=== PATIENT | male | born 1975 | race African-American/Black ===

== ENCOUNTER 2016-08-24 18:52 | Emergency (ER) | payer BC ==
[2016-08-24 20:10] VITALS: RESP 20; TEMP 98.1
--- NOTE | 2016-08-24 20:59 | ED ---
General Adult HPI - General Chief complaint: Extremity Injury, Lower Stated complaint: swelling left calf Time Seen by Provider: 08/24/16 20:15 Source: patient, RN notes reviewed Mode of arrival: ambulatory Limitations: no limitations - History of Present Illness Initial comments: This is a 41-year-old male who presents with a left lower extremity pain 2 weeks. Patient states he has noticed pain to the posterior left calf approximately 2 weeks ago. Patient states this started while he was at work sitting at his desk. Patient states he's been trying to stretch the left lower extremity and stay walking on it to improve the pain but nothing has worked. Patient states the pain has gotten worse and yesterday he noticed swelling to the left lower extremity. Patient states today he noticed some tingling to the top of the left foot but denies any numbness or weakness. Patient is able to ambulate. Patient has no history of DVT. Patient is not on any medication. Patient states she did have orthopedic surgery in May 2016.patient is also complaining of right shoulder pain 3-4 months. Patient states the pain is worse with lifting his arms above his head and with lifting objects. Patient states this was a gradual onset of pain to the right shoulder. Patient denies any injury to the left lower extremity or the right shoulder. Patient denies any recent fever, chills, shortness breath, chest pain, abdominal pain, nausea/ vomiting/diarrhea, back pain, hematuria, headache, or visual changes, or any other complaints. - Related Data Home Medications Medication Instructions Recorded Confirmed No Known Home Medications [No 01/21/14 08/24/16 Known Home Medications] Allergies Allergy/AdvReac Type Severity Reaction Status Date / Time No Known Allergies Allergy Verified 08/24/16 20:10 Review of Systems ROS Statement: Those systems with pertinent positive or pertinent negative responses have been documented in the HPI. ROS Other: All systems not noted in ROS Statement are negative. Past Medical History Past Medical History: No Reported History History of Any Multi-Drug Resistant Organisms: None Reported Past Surgical History: Orthopedic Surgery Additional Past Surgical History / Comment(s): left arm Past Psychological History: No Psychological Hx Reported Smoking Status: Never smoker Past Alcohol Use History: Occasional Past Drug Use History: None Reported General Exam - General Exam Comments Initial Comments: General: The patient is awake and alert, in no distress, and does not appear acutely ill. Neck: The neck is supple, there is no tenderness or JVD. Cardiovascular: There is a regular rate and rhythm. No murmur, rub or gallop is appreciated. Respiratory: Lungs are clear to auscultation, respirations are non-labored, breath sounds are equal. No wheezes, stridor, rales, or rhonchi. Musculoskeletal: There is tenderness to palpation of the left calf. There is swelling noted to the left calf compared to the right calf. There is no erythema or warmth to bilateral lower extremities. There is tenderness to the anterior and lateral aspects of the right shoulder. There is pain with flexion and abduction of the right upper extremity, but the patient has full range of motion to the right upper extremity. Pain is exacerbated with opposed external rotation of the right forearm and with empty can test. Full range of motion, strength 5/5 and Sensation intact. Posterior tibial and dorsalis pedis pulses are equal and present bilaterally via Doptone. Radial pulses are 2+ bilaterally. 2+ pitting edema to bilateral lower extremities but patient states this is chronic. Capillary refill is less than 2 seconds bilaterally. Patient is able to ambulate. Neurological: A&O x 3. CN II-XII intact, There are no obvious motor or sensory deficits. Coordination appears grossly intact. Speech is normal. Skin: Skin is warm and dry and no rashes or lesions are noted. Psychiatric: Normal mood and affect. Limitations: no limitations Course Vital Signs 08/24/16 08/24/16 20:08 22:25 Temperature 98.1 F Pulse Rate 81 82 Respiratory 20 20 Rate Blood Pressure 174/90 153/98 O2 Sat by Pulse 98 96 Oximetry Medical Decision Making - Medical Decision Making This is a 41-year-old male presents with left lower extremity swelling and right shoulder pain. On physical exam there is there is tenderness to palpation of the left calf. There is swelling noted to the left calf compared to the right calf. There is no erythema or warmth to bilateral lower extremities. There is tenderness to the anterior and lateral aspects of the right shoulder. There is pain with flexion and abduction of the right upper extremity, the patient has full range of motion to the right upper extremity. Pain is exacerbated with opposed external rotation of the right forearm and with empty can test. Full range of motion, strength 5/5 and Sensation intact. Posterior tibial and dorsalis pedis pulses are equal and present bilaterally via Doptone. Radial pulses are 2+ bilaterally. 2+ pitting edema to bilateral lower extremities but patient states this is chronic. Capillary refill is less than 2 seconds bilaterally. Patient is able to ambulate. Patient's elevated systolic blood pressure noted. Patient states he has been on blood pressure medications in the past, but stopped these medications due to dizziness. Discussed with patient to follow-up with primary care physician for this. Patient's reported tingling to the right foot has improved during his stay in the [facility]. A Doppler ultrasound of the left lower extremity was done and reviewed showing: No evidence of acute deep venous thrombosis in the visualized left lower extremity deep veins. Report reviewed by Dr. Moore. An x-ray of the right upper extremity was done and reviewed showing: There is no acute fracture or dislocation. Mild degenerative arthritic changes in the right acromioclavicular joint. Report read by Dr. Moore. Discussed the patient will receive a sling for the right shoulder, but patient refused sling at this time. Discussed rest, ice, elevate and use a Christopher wrap to left lower extremity for compression. Discussed that this could be a rotator cuff injury to the right shoulder and possible muscle strain to the left lower extremity. Discussed follow-up with orthopedics further evaluation. Discussed [id number] Tylenol and or Motrin as needed for any pain. Discussed that patient should follow up with PCP in one to 2 days or return to the [facility] for any worsening symptoms or for any further concerns. Patient and were receptive to this plan and patient will be discharged home. I discussed his case with attending physician Dr. Juarez who agrees the plan as stated above. Disposition Clinical Impression: Right shoulder pain, Left leg pain Disposition: HOME SELF-CARE Condition: Good Instructions: Shoulder Pain (ED) Additional Instructions: Please rest, ice, elevate and use Christopher bandage for compression to the lower extremity. Please use [id number] Tylenol and or Motrin as seen for any pain. Please follow-up with orthopedics for right shoulder pain. Please follow -up with PCP in one to 2 days or return to the [facility] for any worsening symptoms or for any further concerns. Referrals: Darrian Ansari III, MD [Primary Care Provider] - 1-2 days Axel Luque DO [Doctor of Osteopathic Medicine] - 1-2 days Time of Disposition: 22:21
--- NOTE | 2016-08-24 22:09 | US ---
EXAMINATION TYPE: US venous doppler duplex LE LT DATE OF EXAM: 08/24/2016 9:35 PM COMPARISON: NONE CLINICAL HISTORY: left calf pain x 2 weeks and swelling x 1 day. No hx of blood clots. No hx of inj ury or on blood thinners. Pt had maniscus repair in May.. SIDE PERFORMED: Left VESSELS IMAGED: External Iliac Vein (EIV) Common Femoral Vein Deep Femoral Vein Greater Saphenous Vein * Femoral Vein Popliteal Vein Small Saphenous Vein * Proximal Calf Veins (* superficial vessels) Essentially normal phasic flow augmentation and compression is demonstrated in the visualized left lo wer extremity deep veins including left common femoral, superficial femoral and popliteal veins. IMPRESSION: No evidence of acute deep venous thrombosis in the visualized left lower extremity deep veins.
--- NOTE | 2016-08-24 22:13 | XR ---
EXAMINATION TYPE: XR shoulder complete RT DATE OF EXAM: 08/24/2016 9:45 PM CLINICAL HISTORY: pain pain for 6 months. TECHNIQUE: Three views of the right shoulder are obtained. COMPARISON: None FINDINGS: There is no acute fracture/dislocation evident. Mild degenerative osteoarthritic changes a re present in the right acromioclavicular joint... The visualized ribs are intact and unremarkable. IMPRESSION: 1. There is no acute fracture or dislocation. Mild degenerative arthritic changes in the right acromi oclavicular joint. ICD 10 NO FRACTURE, INITIAL EVALUATION
[2016-08-24 22:27] VITALS: BP 153/98; PULSE 82
== END 2016-08-24 22:27 | disposition home or self-care (01) ==
LOC: EC 18:52
DX: M79.605 Pain in left leg (principal); M25.511 Pain in right shoulder; R22.42 Localized swelling, mass and lump, left lower limb; R20.2 Paresthesia of skin; Z98.890 Other specified postprocedural states
CPT/HCPCS: 99284

== ENCOUNTER 2016-10-25 20:34 | Emergency (ER) | payer BC ==
[2016-10-25 20:39] VITALS: BP 165/84; PULSE 75; RESP 18; TEMP 97.9
--- NOTE | 2016-10-25 21:37 | ED ---
General Adult HPI - General Chief complaint: Skin/Abscess/Foreign Body Stated complaint: Finger Pain Time Seen by Provider: 10/25/16 21:13 Source: patient, RN notes reviewed Mode of arrival: ambulatory Limitations: no limitations - History of Present Illness Initial comments: This is a 40-year-old male who presents with pain and swelling to the right index finger around the nailbed. Patient states he bit a hangnail 2 weeks ago and is now noticed pain and swelling is increasing. Patient denies any numbness /tingling or weakness. Patient denies any drainage from the area. Patient states on a course of Keflex for an abscess that he had drained last week but this has not helped the pain and swelling in his finger.Patient denies any recent fever, chills, shortness breath, chest pain, abdominal pain, nausea/ vomiting/diarrhea, back pain, hematuria, headache, or visual changes, or any other complaints. - Related Data Previous Rx's Medication Instructions Recorded Amoxic-Pot Clav 875-125Mg 1 tab PO Q12HR 5 Days 10/25/16 [Augmentin 875-125] Allergies Allergy/AdvReac Type Severity Reaction Status Date / Time No Known Allergies Allergy Verified 10/25/16 21:12 Review of Systems ROS Statement: Those systems with pertinent positive or pertinent negative responses have been documented in the HPI. ROS Other: All systems not noted in ROS Statement are negative. Past Medical History Past Medical History: No Reported History History of Any Multi-Drug Resistant Organisms: None Reported Past Surgical History: Orthopedic Surgery Additional Past Surgical History / Comment(s): left arm Past Psychological History: No Psychological Hx Reported Smoking Status: Never smoker Past Alcohol Use History: Occasional Past Drug Use History: None Reported General Exam - General Exam Comments Initial Comments: General: The patient is awake and alert, in no distress, and does not appear acutely ill. Neck: The neck is supple, there is no tenderness or JVD. Cardiovascular: There is a regular rate and rhythm. No murmur, rub or gallop is appreciated. Respiratory: Lungs are clear to auscultation, respirations are non-labored, breath sounds are equal. No wheezes, stridor, rales, or rhonchi. Musculoskeletal: Tenderness to palpation over the lateral aspect of the first digit's nail bed of the right hand. There is erythema but no sign of drainage. Full range of motion, strength 5/5 and Sensation intact. Radial pulses 2+ bilaterally. Capillary refill is normal at less than 2 seconds. Neurological: A&O x 3. CN II-XII intact, There are no obvious motor or sensory deficits. Coordination appears grossly intact. Speech is normal. Skin: There is erythema to the periungual of the index finger of the right hand. Skin is warm and dry and no rashes or lesions are noted. Psychiatric: Normal mood and affect. Limitations: no limitations Course Vital Signs 10/25/16 20:37 Temperature 97.9 F Pulse Rate 75 Respiratory 18 Rate Blood Pressure 165/84 O2 Sat by Pulse 97 Oximetry Procedures - Procedures Initial comment: Procedure: Incision and drainage The skin overlying the abscess was prepped with Betadine, and anesthetized with 1% lidocaine without epinephrine via digital block. A #18-gauge needle was then used to incise the abscess. Some serosanguineous material was then extracted from the lesion. Wound culture obtained. Gauze dressing placed on top, The patient tolerated the procedure well. Medical Decision Making - Medical Decision Making This is a 41-year-old male presents pain and swelling to the right index finger after biting hangnail. On physical exam patient is afebrile in the [facility]. Tenderness to palpation over the lateral aspect of the first digit's nail bed of the right hand. There is erythema but no sign of drainage. Full range of motion, strength 5/5 and Sensation intact. Radial pulses 2+ bilaterally. Capillary refill is normal at less than 2 seconds. Procedure: Incision and drainage The skin overlying the abscess was prepped with Betadine, and anesthetized with 1% lidocaine without epinephrine via digital block. A #18-gauge needle was then used to incise the abscess. Some serosanguineous material was then extracted from the lesion. Wound culture obtained. Gauze dressing placed on top, The patient tolerated the procedure well. I discussed warm compresses to the area and Tylenol/Motrin as needed for pain. I discussed the patient will be put on a course of antibiotics to prevent infection. Discussed return parameters. Discussed that patient should follow up with PCP in one to 2 days or return to the [facility] for any worsening symptoms or for any further concerns. Patient was receptive to this plan and patient will be discharged home. Disposition Clinical Impression: Paronychia Disposition: HOME SELF-CARE Condition: Good Instructions: Paronychia (ED) Additional Instructions: Please finish the course of antibiotics. Please use Tylenol or Motrin as needed for pain. Please use warm compresses to the area to allow for drainage.Please use medication as discussed. Please follow-up with family doctor in the next 2 days of symptoms have not improved. Please return to emergency room if the symptoms increase or worsen or for any other concerns. Prescriptions: Amoxic-Pot Clav 875-125Mg [Augmentin 875-125] 1 tab PO Q12HR 5 Days Referrals: Darrian Ansari III, MD [Primary Care Provider] - 1-2 days Time of Disposition: 22:35
== END 2016-10-25 22:40 | disposition home or self-care (01) ==
LOC: EC 20:34
DX: L03.011 Cellulitis of right finger (principal)
CPT/HCPCS: 10060; 87070; 87077; 87186; 87205; 99283

== ENCOUNTER → 2017-03-08 | Outpatient (CLI) | payer BC ==
--- NOTE | 2017-03-09 09:31 | CONS ---
REASON FOR CONSULTATION: Sleep apnea. This is a 42-year-old male patient, primary of Dr. Ansari, who has been diagnosed having obstructive sleep apnea approximately 6 years ago through a sleep center in [place]. He was treated with CPAP for a total of 2 years. He was told back then to have an apnea score of more than 100. His treatment was successful. After he moved, he lost his CPAP machine, he became progressively more symptomatic and he also gained around 30 pounds over the past 5 years. He is currently snoring, stops breathing. He wakes up choking, gasping for air. He has nocturia. He has a dry mouth and he has excessive tiredness and sleepiness during the day. He goes to bed around 10:30, wakes up 6 a.m. in the morning and despite that he quite lethargic and sleepy. He has positive family history for sleep apnea. Past medical history is obstructive sleep apnea and obesity. Past surgical history is repair of a meniscus of the left knee and shoulder surgery where a benign tumor was resected in 1986. SOCIAL HISTORY: The patient is a nonsmoker, no history of alcohol, no history of IV drugs. FAMILY HISTORY: Mother and brother have obstructive sleep apnea. Allergies are to POLLEN and GRASS and medications are none. REVIEW OF SYSTEMS: A 12-point review of system was done. Positive finding as mentioned above in the history of present illness. BP is 193/86, pulse 91, respirations 16, temperature 98.2, saturation 97% on room air. Weight is 366, height is 68 inches. Neck size 18, Columbus score is 12. GENERAL APPEARANCE: Calm, comfortable. HEENT: Short neck, crowing of posterior pharynx, Mallampati class 4. LUNGS: Clear to auscultation. Heart sounds irregular rhythm, normal S1, S2. ABDOMEN: Soft, nontender, no organomegaly. EXTREMITIES: No edema, no cyanosis or clubbing. IMPRESSION: 1. Symptomatic obstructive sleep apnea. The patient is coming in for re- evaluation and he is asking for being treated. 2. Body mass index of 55.6. 3. Chronic hypersomnia, Columbus score of 12. 4. Hypertension. PLAN: 1. Follow up with the primary care physician regarding blood pressure. 2. Set up this patient for ( ) study, the initial part will be diagnostic, second part will be therapeutic with diagnosis of the sleep apnea will be established and the patient will be treated accordingly. 3. Weight loss. 4. Avoid driving especially when feeling drowsy or sleepy. 5. Will continue to follow. MTDD
== END ==
LOC: SLEEP 17:01
PROVIDERS: ATTEND Internal Medicine Critical Care Medicine
DX: G47.33 Obstructive sleep apnea (adult) (pediatric) (principal); G47.10 Hypersomnia, unspecified; I10 Essential (primary) hypertension; Z68.43 Body mass index [BMI] 50.0-59.9, adult
CPT/HCPCS: 99211

== ENCOUNTER → 2017-07-27 | Outpatient (CLI) | payer BC ==
[2017-07-27 16:20] VITALS: RESP 16; TEMP 99.1; BMI 59.7
[2017-07-27 17:06] VITALS: BP 211/82; PULSE 118
[2017-07-27 18:11] LABS: MCH 27.3 pg (25.0-35.0); MCHC 33.4 g/dL (31.0-37.0); MCV 81.6 fL (80.0-100.0); Mean Platelet Volume 7.1; Platelet Count 246 k/uL (150-450); RBC 5.51 m/uL (4.30-5.90); RDW 14.8 % (11.5-15.5); WBC 7.8 k/uL (3.8-10.6)
[2017-07-27 18:29] LABS: ALT 42 U/L (21-72); AST 23 U/L (17-59); Albumin 3.8 g/dL (3.5-5.0); Alkaline Phosphatase 96 U/L (38-126); Anion Gap 8 mmol/L; Blood Urea Nitrogen 12 mg/dL (9-20); Calcium 9.3 mg/dL (8.4-10.2); Carbon Dioxide 30 mmol/L (22-30); Chloride 104 mmol/L (98-107); Cholesterol 147 mg/dL (<200); Glucose 93 mg/dL (74-99); HDL Cholesterol 39 mg/dL (40-60); LDL Cholesterol,Calculated 80 mg/dL (0-99); Potassium 4.3 mmol/L (3.5-5.1); Sodium 142 mmol/L (137-145); Total Bilirubin 0.2 mg/dL (0.2-1.3); Total Protein 7.2 g/dL (6.3-8.2); Triglycerides 142 mg/dL (<150)
[2017-07-28 01:03] LABS: Iron Saturation 15.02 (15.00-50.00)
[2017-07-28 01:09] LABS: Folate, Serum 5.8 ng/mL; Vitamin D 25 Hydroxy 8.4 ng/mL (30.0-100.0)
[2017-07-28 04:34] LABS: Hemoglobin A1C 5.9 % (4.0-6.0)
[2017-07-30 15:01] LABS: Anabasine Urine <2.0 ng/mL (<2.0)
--- NOTE | 2017-09-10 21:51 | P.HPBAR ---
Bariatric H&P - History & Physicial H&P Date: 07/27/17 History & Physicial: Visit/CC: initial visit Patient initial contact: Initial weight: 174.265 kg Initial weight in pounds: 384.00 Height: 5 ft 7.25 in Initial BMI: 59.7 Last weight: Current weight: 174.265 kg Current weight in pounds: 384.00 Current BMI: 59.7 [place] body weight (based on NIH guidelines): 67.812 kg Excess body weight loss: 0.0% The patient is a 42 year-old M who presents for Bariatric Assessment. DATE OF SERVICE: 07/27/2017 REASON FOR CONSULTATION: Initial bariatric evaluation. HISTORY OF PRESENT ILLNESS: Neil Soliz is a 42-year-old male who comes in with long-standing morbid obesity. He reports developing high blood pressure including obstructive sleep apnea as a result of his obesity. He is looking into the sleeve gastrectomy. No family history of stomach or esophageal cancer. No reports of food ALLERGIES. He denies lupus or multiple sclerosis in his family or himself. No reports of Crohn's disease or ulcer colitis. He has a strong family history of obesity. His mother and brother are diabetics. He reports severe chronic lower back pain including hip pain and bilateral knee pain. He has chronic swelling of the legs and ankles. No reports of fatty food intolerance or gallbladder disorder. Now he presents for his initial assessment. At height of 5 feet 7.25 inches, his ideal body weight is 158 pounds. He comes in with 383 pounds. His body mass index is 59.7. He is 225 pounds overweight. PAST MEDICAL HISTORY: 1. Morbid obesity. 2. Body mass index of 60 3. Osteoarthritis of the knees. 4. Osteoarthritis of the hips. 5. Osteoarthritis of the lower back. 6. Obstructive sleep apnea. 7. Hypertensive heart disease. PAST SURGICAL HISTORY: 1. Arthroscopy. HOME MEDICATIONS: 1. Hydrochlorothiazide. ALLERGIES: Denies. SOCIAL HISTORY: No active tobacco use. FAMILY HISTORY: No family history of ulcerative colitis disease or Crohn's disease. Family history of morbid obesity. No lupus in the family. No reports of stomach or esophageal cancer. Family history of diabetes type 2. REVIEW OF ORGAN SYSTEMS: CONSTITUTIONAL: At height of 5 feet 7.25 inches, his ideal body weight is 158 pounds. He comes in with 383 pounds. His body mass index is 59.7. He is 225 pounds overweight. HEENT: Denies any active troubles with vision or hearing. No troubles with swallowing. ENDOCRINE: No diabetes. No hypothyroidism. CARDIOVASCULAR: No reports of palpitations or heart attacks or chest pain. RESPIRATORY: Has daytime somnolence. No asthma. GI: Denies any bright red blood per rectum. No diarrhea or constipation. MUSCULOSKELETAL: Has lower back pain and joint pain. Has osteoarthritis of the knees. History of bilateral lower extremity edema. NEURO: No headaches. No seizure disorders. PSYCH: No depression or suicidal ideation. RHEUMATOLOGIC: No lupus. No rheumatoid arthritis. HEMATOLOGIC: Denies any abnormal bleeding or bruising. No personal history of DVTs. SKIN: No rash. No skin cancer. PHYSICAL EXAM: VITAL SIGNS: Height 5 foot 7.25 inches, weight 383 pounds. BMI 59.7 Vital Signs Temp 99.1 F 07/27/17 17:04 Pulse 118 H 07/27/17 17:04 Resp 16 07/27/17 17:04 BP 211/82 07/27/17 17:04 Pulse Ox GENERAL: Well-developed in no acute distress. HEENT: No scleral icterus. Extraocular movements grossly intact. Hears conversational speech. No nasal drainage. NECK: Supple without lymphadenopathy. CHEST: Nonlabored respirations with equal bilateral excursions. CARDIOVASCULAR: Regular rate and regular rhythm. Distal 2+ pulses. ABDOMEN: Obese, soft, nontender, nondistended. MUSCULOSKELETAL: No clubbing, cyanosis. Gross strength 5/5 distal lower extremities. 2+ pre-tibial pitting edema. NEURO: No focal or lateralizing signs. Cranial nerves 2 through 12 grossly within normal limits. PSYCH: Appropriate affect. Alert and oriented to person, place and time. SKIN: Good skin turgor. Well perfused. ASSESSMENT: 1. Morbid obesity due to excess calories. 2. Body mass index of 60 3. Osteoarthritis of the knees. 4. Osteoarthritis of the hips. 5. Osteoarthritis of the lower back. 6. Obstructive sleep apnea. 7. Hypertensive heart disease. 8. Bilateral lower extremity swelling. 9. Family history of morbid obesity. 10. Family history of diabetes type 2. 11. Supraventricular tachycardia. PLAN: 1. Surgical options including a band, gastric bypass, sleeve gastrectomy were described in detail. Alternatives such as gastric balloon including duodenal switch were described. 2. The [place] bariatric surgical collaborative data and outcomes calculator were described with surgical options. 3. Recommend a bariatric metabolic panel to evaluate for micro- including macronutrient deficiencies. 4. For history of daytime somnolence, recommend evaluation and treatment for sleep apnea. 5. Dietary surveillance and counseling was reviewed, I have asked increased protein intake to at least 80 grams daily. 6. Will need cardiac risk assessment. 7. Recommend medical risk assessment. 8. Psych assessment per insurance guidelines. 9. Follow up upon completion of upper endoscopy. 10. Recommend 12-lead EKG with family history of hypertensive heart disease and supraventricular tachycardia. 11. Recommend upper endoscopy. Thank you for this consultation. Past Medical History Past Medical History: No Reported History History of Any Multi-Drug Resistant Organisms: None Reported Past Surgical History: Orthopedic Surgery Additional Past Surgical History / Comment(s): left arm Past Psychological History: No Psychological Hx Reported Smoking Status: Never smoker Past Alcohol Use History: Occasional Past Drug Use History: None Reported Surgical - Exam Vital Signs Temp Resp 99.1 F 16 07/27/17 16:16 07/27/17 16:16 Results - Labs 07/27/17 17:40 07/27/17 17:40 Bariatric Checklist Checklist: Plan: Checklist: EGD: 1. Hiatal hernia: 2. H. Pylori: HgbA1c: Vitamin D: Smoking: Never smoker Primary care physician referral: Psychiatry clearance: Cardiology clearance: Sleep study: Diet journal: VTE risk score: VTE risk level: Rehab needs at discharge:
--- NOTE | 2017-09-10 22:08 | P.PN ---
Progress Note - Text Progress Note Date: 07/27/17 Laboratory Last Values WBC 7.8 k/uL (3.8-10.6) 07/27/17 17:40 RBC 5.51 m/uL (4.30-5.90) 07/27/17 17:40 Hgb 15.0 gm/dL (13.0-17.5) 07/27/17 17:40 Hct 45.0 % (39.0-53.0) 07/27/17 17:40 MCV 81.6 fL (80.0-100.0) 07/27/17 17:40 MCH 27.3 pg (25.0-35.0) 07/27/17 17:40 MCHC 33.4 g/dL (31.0-37.0) 07/27/17 17:40 RDW 14.8 % (11.5-15.5) 07/27/17 17:40 Plt Count 246 k/uL (150-450) 07/27/17 17:40 Sodium 142 mmol/L (137-145) 07/27/17 17:40 Potassium 4.3 mmol/L (3.5-5.1) 07/27/17 17:40 Chloride 104 mmol/L (98-107) 07/27/17 17:40 Carbon Dioxide 30 mmol/L (22-30) 07/27/17 17:40 Anion Gap 8 mmol/L 07/27/17 17:40 BUN 12 mg/dL (9-20) 07/27/17 17:40 Creatinine 1.13 mg/dL (0.66-1.25) 07/27/17 17:40 Est GFR (MDRD) Af Amer >60 (>60 ml/min/1.73 sqM) 07/27/17 17:40 Est GFR (MDRD) Non-Af >60 (>60 ml/min/1.73 sqM) 07/27/17 17:40 Glucose 93 mg/dL (74-99) 07/27/17 17:[address] Glu mg/dL 123 07/27/17 17:40 Hemoglobin A1c 5.9 % (4.0-6.0) 07/27/17 17:40 Calcium 9.3 mg/dL (8.4-10.2) 07/27/17 17:40 Iron 50 ug/dL (65-175) L 07/27/17 17:40 TIBC 333 ug/dL (228-460) 07/27/17 17:40 Iron Saturation 15.02 (15.00-50.00) 07/27/17 17:40 Ferritin 41.9 ng/mL (22.0-322.0) 07/27/17 17:40 Total Bilirubin 0.2 mg/dL (0.2-1.3) 07/27/17 17:40 AST 23 U/L (17-59) 07/27/17 17:40 ALT 42 U/L (21-72) 07/27/17 17:40 Alkaline Phosphatase 96 U/L (38-126) 07/27/17 17:40 Total Protein 7.2 g/dL (6.3-8.2) 07/27/17 17:40 Albumin 3.8 g/dL (3.5-5.0) 07/27/17 17:40 Triglycerides 142 mg/dL (<150) 07/27/17 17:40 Cholesterol 147 mg/dL (<200) 07/27/17 17:40 LDL Cholesterol, Calc 80 mg/dL (0-99) 07/27/17 17:40 HDL Cholesterol 39 mg/dL (40-60) L 07/27/17 17:40 Vitamin B1 51 ug/L (38-122) 07/27/17 17:40 Vitamin B12 438.0 pg/mL (200.0-944.0) 07/27/17 17:40 Vitamin D 25-Hydroxy 8.4 ng/mL (30.0-100.0) L 07/27/17 17:40 Folate 5.8 ng/mL 07/27/17 17:40 TSH 2.280 mIU/L (0.465-4.680) 07/27/17 17:40 Urine Cotinine <5.0 ng/mL (<5.0) 07/27/17 17:40 Urine Nicotine <2.0 ng/mL (<2.0) 07/27/17 17:40 Urine Anabasine <2.0 ng/mL (<2.0) 07/27/17 17:40 EKG EKG PERFORMED 07/27/17 17:40 Miscellaneous Test HEROIN 07/27/17 17:45 Misc Test Result See Comment 07/27/17 17:45 Findings consistent with iron deficiency anemia, dyslipidemia with low HDL, severe vitamin D deficiency EKG shows sinus rhythm.
== END | disposition home or self-care (01) ==
LOC: BARWHC3 14:48
PROVIDERS: ATTEND Surgery Plastic and Reconstructive Surgery
DX: E66.01 Morbid (severe) obesity due to excess calories (principal); M17.0 Bilateral primary osteoarthritis of knee; M16.0 Bilateral primary osteoarthritis of hip; M47.9 Spondylosis, unspecified; G47.33 Obstructive sleep apnea (adult) (pediatric); I11.0 Hypertensive heart disease with heart failure; F10.20 Alcohol dependence, uncomplicated; I50.9 Heart failure, unspecified; M79.89 Other specified soft tissue disorders; I47.1 Supraventricular tachycardia; G89.29 Other chronic pain; E89.1 Postprocedural hypoinsulinemia; D50.8 Other iron deficiency anemias; E44.0 Moderate protein-calorie malnutrition; E55.9 Vitamin D deficiency, unspecified; Z83.49 Family history of other endocrine, nutritional and metabolic diseases; Z83.3 Family history of diabetes mellitus; Z79.899 Other long term (current) drug therapy; Z98.890 Other specified postprocedural states; Z68.44 Body mass index [BMI] 60.0-69.9, adult
CPT/HCPCS: 36415; 80053; 80061; 80307; 80323; 80356; 82306; 82607; 82728; 82746; 83036; 83540; 83550; 84425; 84443; 85027; 93005; 99211

== ENCOUNTER 2017-09-07 09:58 | Day surgery (SDC) | payer BC ==
[2017-09-05 16:30] VITALS: BMI 60.0
[~2017-09-07 09:58] MED LIST: LACTATED RINGERS 1,000 ML IV SCH; LIDOCAINE 1% 20 ML VIAL (10MG/ML) FOR IV START INTRADERMA PRN
[2017-09-07 10:34] VITALS: TEMP 98.4
--- NOTE | 2017-09-07 11:13 | P.GSHP ---
History of Present Illness H&P Date: 09/07/17 CHIEF COMPLAINT: GERD HISTORY OF PRESENT ILLNESS: The patient is a 42-year-old male who presents reports gastroesophageal reflux disease. Upper endoscopy was offered for further evaluation and management. PAST MEDICAL HISTORY: Please see list. PAST SURGICAL HISTORY: Please see list. MEDICATIONS: Please see list. ALLERGIES: Please see list. SOCIAL HISTORY: No illicit drug use FAMILY HISTORY: No reports of Crohn disease or ulcerative colitis. REVIEW OF ORGAN SYSTEMS: CONSTITUTIONAL: No reports of fevers or chills. GI: Denies any blood in stools or constipation. PHYSICAL EXAM: VITAL SIGNS: Stable GENERAL: Well-developed and pleasant in no acute distress. HEENT: No scleral icterus. Extraocular movements grossly intact. Moist buccal mucosa. NECK: Supple without lymphadenopathy. CHEST: Unlabored respirations. Equal bilateral excursions. CARDIOVASCULAR: Regular rate and rhythm. Distal 2+ pulses. ABDOMEN: Soft, nondistended. MUSCULOSKELETAL: No clubbing, cyanosis, or edema. ASSESSMENT: 1. Gastroesophageal reflux disease PLAN: 1. 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 Past Anesthesia/Blood Transfusion Reactions: No Reported Reaction Smoking Status: Never smoker - Past Family History Mother Family Medical History: No Reported History Medications and Allergies Home Medications Medication Instructions Recorded Confirmed Type Ergocalciferol (Vitamin D2) 50,000 unit PO MO 09/05/17 09/07/17 History [Vitamin D2] Hydrochlorothiazide 12.5 mg PO DAILY 09/05/17 09/07/17 History Allergies Allergy/AdvReac Type Severity Reaction Status Date / Time No Known Allergies Allergy Verified 09/07/17 10:18 Surgical - Exam Vital Signs Temp Pulse Resp BP Pulse Ox 98.4 F 76 16 155/82 96 09/07/17 10:33 09/07/17 10:33 09/07/17 10:33 09/07/17 10:33 09/07/17 10:33
[2017-09-07] MEDS ORDERED: LIDOCAINE 1% INJ 10MG/ML (20 ML MDV) ONE (11:18)
[2017-09-07] MEDS ORDERED: PROPOFOL 10 MG/ML 20 ML VIAL IV ONE (11:18)
--- NOTE | 2017-09-07 11:34 | P.PCN ---
Date of Procedure: 09/07/17 Description of Procedure: PREOPERATIVE DIAGNOSIS: Gastroesophageal reflux disease. Morbid obesity. POSTOPERATIVE DIAGNOSIS: Morbid obesity. Gastritis, superficial. Duodenitis. Duodenal ulcer. Gastroesophageal reflux disease. OPERATION: Esophagogastroduodenoscopy with biopsies along antrum and duodenum. SURGEON: Mallorie Owen MD ANESTHESIA: MAC. INDICATIONS: The patient is a 42-year-old male who presents with a history of reflux disease. Benefits and risks of the procedure were described. Informed consent was obtained. DESCRIPTION: The patient was brought into the endoscopy suite and laid in the left lateral decubitus position. An Olympus gastroscope was passed along the posterior oropharynx down to the distal esophagus where the squamocolumnar junction was encountered at 40 cm from the incisors. The stomach was entered and no bile reflux was found. Additional findings are listed below. Biopsies with cold forceps were obtained of the antrum. The first through third portion of the duodenum was examined and remarkable for duodenitis including 3 mm duodenal ulcer superficial base along D2. Retroflexion of the scope confirmed Hill grade 2 lower esophageal valve. The squamocolumnar junction demostrated mild LA grade A erosive esophagitis. The stomach was desufflated. The patient tolerated the procedure well. FINDINGS: Squamocolumnar junction 40 cm from the incisors. Diaphragmatic hiatus at 40 cm. Hill grade 2 lower esophageal valve. LA grade A erosive esophagitis. Gastritis. Duodenal ulcer without bleeding. Duodenitis. RECOMMENDATIONS: Further recommendations pending results of pathology report. Upper endoscopy as needed. Start of medical treatment for duodenitis and duodenal ulcer. Plan - Discharge Summary New Discharge Prescriptions: No Action Hydrochlorothiazide 12.5 mg PO DAILY Ergocalciferol (Vitamin D2) [Vitamin D2] 50,000 unit PO MO Discharge Medication List Ergocalciferol (Vitamin D2) [Vitamin D2] 50,000 unit PO MO 09/05/17 [History] Hydrochlorothiazide 12.5 mg PO DAILY 09/05/17 [History]
[2017-09-07 11:44] VITALS: RESP 18
[2017-09-07 11:59] VITALS: BP 142/89; PULSE 82
== END 2017-09-07 12:14 | disposition home or self-care (01) ==
LOC: ORWHC2ENDO 09:58
PROVIDERS: ATTEND Surgery Plastic and Reconstructive Surgery
DX: K26.9 Duodenal ulcer, unspecified as acute or chronic, without hemorrhage or perforation (principal); K22.10 Ulcer of esophagus without bleeding; K21.9 Gastro-esophageal reflux disease without esophagitis; K29.50 Unspecified chronic gastritis without bleeding; K29.80 Duodenitis without bleeding; I10 Essential (primary) hypertension; G47.33 Obstructive sleep apnea (adult) (pediatric); E66.01 Morbid (severe) obesity due to excess calories; Z68.44 Body mass index [BMI] 60.0-69.9, adult; Z79.899 Other long term (current) drug therapy
CPT/HCPCS: 88305; 88342; 43239; J2001; J2704

== ENCOUNTER → 2017-10-10 | Outpatient (CLI) | payer BC ==
[2017-10-10 14:27] VITALS: BMI 60.8
== END | disposition home or self-care (01) ==
LOC: BARWHC3 08:10
PROVIDERS: ATTEND Surgery Plastic and Reconstructive Surgery
DX: E66.01 Morbid (severe) obesity due to excess calories (principal); Z71.3 Dietary counseling and surveillance
CPT/HCPCS: 97804

== ENCOUNTER → 2017-11-14 | Outpatient (CLI) | payer BC ==
[2017-11-14 17:28] LABS: Basophils # (A) 0.1 k/uL (0-0.2); Basophils % (A) 1 %; Eosinophils # (A) 0.3 k/uL (0-0.7); Eosinophils % (A) 3 %; HCT 44.2 % (39.0-53.0); Lymphocytes # (A) 2.8 k/uL (1.0-4.8); Lymphocytes % (A) 37 %; MCH 25.6 pg (25.0-35.0); MCHC 31.7 g/dL (31.0-37.0); MCV 80.6 fL (80.0-100.0); Monocytes # (A) 0.6 k/uL (0-1.0); Monocytes % (A) 8 %; Neutrophils # (A) 3.7 k/uL (1.3-7.7); Neutrophils % (A) 49 %; Platelet Count 265 k/uL (150-450); RBC 5.48 m/uL (4.30-5.90); RDW 13.7 % (11.5-15.5); WBC 7.6 k/uL (3.8-10.6)
[2017-11-14 17:41] LABS: ALT 49 U/L (21-72); AST 39 U/L (17-59); Albumin 3.7 g/dL (3.5-5.0); Alkaline Phosphatase 78 U/L (38-126); Anion Gap 10 mmol/L; Blood Urea Nitrogen 13 mg/dL (9-20); Calcium 9.1 mg/dL (8.4-10.2); Carbon Dioxide 28 mmol/L (22-30); Chloride 102 mmol/L (98-107); Glucose 84 mg/dL (74-99); Potassium 4.2 mmol/L (3.5-5.1); Sodium 140 mmol/L (137-145); Total Bilirubin 0.3 mg/dL (0.2-1.3); Total Protein 6.8 g/dL (6.3-8.2)
== END | disposition home or self-care (01) ==
LOC: LABPAT 17:00
PROVIDERS: ATTEND Surgery Plastic and Reconstructive Surgery
DX: Z01.812 Encounter for preprocedural laboratory examination (principal)
CPT/HCPCS: 36415; 80053; 85025

== ENCOUNTER 2017-11-21 10:30 | Inpatient (IN) | payer BC ==
--- NOTE | 2017-11-20 15:39 | P.GSHP ---
History of Present Illness H&P Date: 11/21/17 DATE OF SERVICE: 11/21/2017 CHIEF COMPLAINT: Morbid obesity HISTORY OF PRESENT ILLNESS: Neil Soliz is a 42-year-old male who comes in with long-standing morbid obesity. He reports developing high blood pressure including obstructive sleep apnea as a result of his obesity. He is looking into the sleeve gastrectomy. No family history of stomach or esophageal cancer. No reports of food ALLERGIES. He denies lupus or multiple sclerosis in his family or himself. No reports of Crohn's disease or ulcer colitis. He has a strong family history of obesity. His mother and brother are diabetics. He reports severe chronic lower back pain including hip pain and bilateral knee pain. He has chronic swelling of the legs and ankles. No reports of fatty food intolerance or gallbladder disorder. Now he presents for his initial assessment. At height of 5 feet 7.25 inches, his ideal body weight is 158 pounds. He comes in with 393 pounds. He has gained 10 pounds in 4 months. His body mass index is 61.7. He is 235 pounds overweight. PAST MEDICAL HISTORY: 1. Morbid obesity. 2. Body mass index of 61.7 3. Osteoarthritis of the knees. 4. Osteoarthritis of the hips. 5. Osteoarthritis of the lower back. 6. Obstructive sleep apnea. 7. Hypertensive heart disease. PAST SURGICAL HISTORY: 1. Arthroscopy. HOME MEDICATIONS: 1. Hydrochlorothiazide. ALLERGIES: Denies. SOCIAL HISTORY: No active tobacco use. FAMILY HISTORY: No family history of ulcerative colitis disease or Crohn's disease. Family history of morbid obesity. No lupus in the family. No reports of stomach or esophageal cancer. Family history of diabetes type 2. REVIEW OF ORGAN SYSTEMS: CONSTITUTIONAL: At height of 5 feet 7.25 inches, his ideal body weight is 158 pounds. He comes in with 383 pounds. His body mass index is 61.7. He is 235 pounds overweight. HEENT: Denies any active troubles with vision or hearing. No troubles with swallowing. ENDOCRINE: No diabetes. No hypothyroidism. CARDIOVASCULAR: No reports of palpitations or heart attacks or chest pain. RESPIRATORY: Has daytime somnolence. No asthma. GI: Denies any bright red blood per rectum. No diarrhea or constipation. MUSCULOSKELETAL: Has lower back pain and joint pain. Has osteoarthritis of the knees. History of bilateral lower extremity edema. NEURO: No headaches. No seizure disorders. PSYCH: No depression or suicidal ideation. RHEUMATOLOGIC: No lupus. No rheumatoid arthritis. HEMATOLOGIC: Denies any abnormal bleeding or bruising. No personal history of DVTs. SKIN: No rash. No skin cancer. PHYSICAL EXAM: VITAL SIGNS: Height 5 foot 7.25 inches, weight 393 pounds. BMI 61.7 GENERAL: Well-developed in no acute distress. HEENT: No scleral icterus. Extraocular movements grossly intact. Hears conversational speech. No nasal drainage. NECK: Supple without lymphadenopathy. CHEST: Nonlabored respirations with equal bilateral excursions. CARDIOVASCULAR: Regular rate and regular rhythm. Distal 2+ pulses. ABDOMEN: Obese, soft, nontender, nondistended. MUSCULOSKELETAL: No clubbing, cyanosis. Gross strength 5/5 distal lower extremities. 2+ pre-tibial pitting edema. NEURO: No focal or lateralizing signs. Cranial nerves 2 through 12 grossly within normal limits. PSYCH: Appropriate affect. Alert and oriented to person, place and time. SKIN: Good skin turgor. Well perfused. ASSESSMENT: 1. Morbid obesity due to excess calories. 2. Body mass index off 61.7 3. Osteoarthritis of the knees. 4. Osteoarthritis of the hips. 5. Osteoarthritis of the lower back. 6. Obstructive sleep apnea. 7. Hypertensive heart disease. 8. Bilateral lower extremity swelling. 9. Family history of morbid obesity. 10. Family history of diabetes type 2. 11. Supraventricular tachycardia. 12. H. pylori gastritis PLAN: 1. Surgical options including a band, gastric bypass, sleeve gastrectomy were described in detail. Alternatives such as gastric balloon including duodenal switch were described. He has elected for sleeve gastrectomy. 2. The [place] bariatric surgical collaborative data and outcomes calculator were described with surgical options. 3. Inpatient hospitalization greater than 2 nights 4. DVT prophylaxis 5. 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 09/07/17 11/11/17 Rx Hydrochlorothiazide 25 mg PO DAILY 09/29/17 11/11/17 History Ascorbic Acid [Vitamin C] 500 mg PO DAILY 11/11/17 11/11/17 History Multivitamins, Thera [Multivitamin 1 tab PO DAILY 11/11/17 11/11/17 History (formulary)] Allergies Allergy/AdvReac Type Severity Reaction Status Date / Time No Known Allergies Allergy Verified 11/11/17 09:17
[~2017-11-21 10:30] MED LIST changes: +ACETAMINOPHEN IV (For NPO) 1,000 MG in EMPTY BAG 1 BAG IVPB ONE; +CHLORHEXIDINE GLUCONATE 15 ML CUP MUCOUS MEM ONE; +DEXAMETHASONE SOD PHOSPHATE 10 MG/ML 1 ML VIAL IV ONE; +ENOXAPARIN 40 MG/0.4 ML SYRINGE SQ STA; -LACTATED RINGERS 1,000 ML IV SCH; -LIDOCAINE 1% 20 ML VIAL (10MG/ML) FOR IV START INTRADERMA PRN; +MIDAZOLAM 2 MG/2 ML VIAL IV PRN; +MORPHINE SULFATE 4 MG/ML SYRINGE IV PRN; +ONDANSETRON 4 MG/2 ML VIAL IVP ONE; +PANTOPRAZOLE 40 MG/10 ML VIAL IV STA; +SCOPOLAMINE 1.5MG/72HR PATCH TRANSDERM STA
[2017-11-21] MEDS: LACTATED RINGERS 1,000 ML IV SCH ×2 (12:54→12:59)
[2017-11-21] MEDS ORDERED: LIDOCAINE 1% 20 ML VIAL (10MG/ML) FOR IV START INTRADERMA ONE (12:55)
[2017-11-21] MEDS ORDERED: NEOSTIGMINE 1 MG/ML 10 ML VIAL ONE (15:06)
[2017-11-21] MEDS ORDERED: GLYCOPYRROLATE 0.2 MG/ML 2 ML VIAL ONE (15:06)
[2017-11-21] MEDS ORDERED: MIDAZOLAM 2 MG/2 ML VIAL ONE (15:06)
[2017-11-21] MEDS ORDERED: PHENYLEPHRINE-0.9% NACL SYG 1 MG/10 ML SYRINGE ONE (15:06)
[2017-11-21] MEDS ORDERED: PROPOFOL 10 MG/ML 20 ML VIAL IV ONE (15:06)
[2017-11-21] MEDS ORDERED: SUCCINYLCHOLINE CHLORIDE VIAL 200 MG/10 ML VIAL IV ONE (15:06)
[2017-11-21] MEDS ORDERED: ROCURONIUM BROMIDE 10 MG/ML 10 ML VIAL IV ONE (15:06)
[2017-11-21] MEDS ORDERED: LIDOCAINE 1% INJ 10MG/ML (20 ML MDV) ONE (15:06)
[2017-11-21] MEDS ORDERED: fentaNYL (PF) 50 MCG/ML 2 ML AMP ONE (15:06)
[2017-11-21] MEDS ORDERED: BUPIVACAINE (PF) 0.25% 30 ML VIAL SQ ONE ×2 (15:17→15:32)
[2017-11-21] MEDS ORDERED: LACTATED RINGERS 1,000 ML IV ONE (17:15)
--- NOTE | 2017-11-21 17:24 | P.PCN ---
Date of Procedure: 11/21/17 Preoperative Diagnosis: Morbid obesity Postoperative Diagnosis: Same, fatty liver disease Procedure(s) Performed: Robotic sleeve gastrectomy, 40 Fr bougie, intraop EGD Anesthesia: GETA, local Surgeon: Mallorie Owen Estimated Blood Loss (ml): 25 Pathology: other (sleeve gastrectomy 34 cm x 5 cm) Condition: stable Disposition: floor Operative Findings: 1. Fatty liver disease with hepatomegaly 2. Extremely large stomach 3. Negative leak test 4. Hemostatic sleeve intra-luminal 5. 25 cm thoracic length 6. 10 green stable loads
[2017-11-21] MEDS ORDERED: ACETAMINOPHEN IV (For NPO) 1,000 MG in EMPTY BAG 1 BAG IVPB ONE (17:25)
[2017-11-21] MEDS ORDERED: NALOXONE 0.4 MG/ML 1 ML VIAL IV PRN (17:25)
[2017-11-21] MEDS ORDERED: diphenhydrAMINE 50 MG/ML 1 ML VIAL IVP PRN (17:25)
[2017-11-21] MEDS ORDERED: ONDANSETRON 4 MG/2 ML VIAL IVP PRN (17:25)
[2017-11-21] MEDS ORDERED: MORPHINE SULF 5MG/10ML VL IVP PRN (17:27)
--- NOTE | 2017-11-21 18:03 | P.OP ---
Date of Procedure: 11/21/17 Description of Procedure: SURGEON: IRAIDA CURRY MD ENAMEL DRIER: 1. ALTAGRACIA MCKEON PREOPERATIVE DIAGNOSES: 1. Morbid obesity due to excess calories. 2. Body mass index 61.7, initial 3. Osteoarthritis of the knees. 4. Osteoarthritis of the hips. 5. Osteoarthritis of the lower back. 6. Obstructive sleep apnea. 7. Hypertensive heart disease. 8. Bilateral lower extremity swelling. 9. Family history of morbid obesity. 10. Family history of diabetes type 2. 11. Supraventricular tachycardia. 12. H. pylori gastritis POSTOPERATIVE DIAGNOSES: 1. Morbid obesity due to excess calories. 2. Body mass index 61.7, initial 3. Osteoarthritis of the knees. 4. Osteoarthritis of the hips. 5. Osteoarthritis of the lower back. 6. Obstructive sleep apnea. 7. Hypertensive heart disease. 8. Bilateral lower extremity swelling. 9. Family history of morbid obesity. 10. Family history of diabetes type 2. 11. Supraventricular tachycardia. 12. H. pylori gastritis 13. Hepatomegaly with fatty liver disease OPERATION: 1. Robotic assisted daVinci Xi laparoscopic sleeve gastrectomy with 40-Vincentian bougie, multiport. 2. Intraoperative esophagogastroduodenoscopy. ANESTHESIA: Gen. local anesthetic ESTIMATED BLOOD LOSS: 25 mL SPECIMENS REMOVED: Sleeve gastrectomy COMPLICATIONS: None. INDICATIONS: Neil Soliz is a 42-year-old male who comes in with long- standing morbid obesity. He reports developing high blood pressure including obstructive sleep apnea as a result of his obesity. He is looking into the sleeve gastrectomy. At height of 5 feet 7.25 inches, his ideal body weight is 158 pounds. He was 393 pounds. He has lost 23 pounds in 1 month. His body mass index was 61.7 now 58.1. He is 212 pounds overweight. All surgical options for morbid obesity had been described using the [place] bariatric surgery collaborative comorbidity resolution including complication risk score. A second-generation bariatric consent form was described in detail including the possibility of protein malnutrition, leaks, gastric stricture, venous thrombosis, gastroesophageal reflux disease, need for further surgery for which he demonstrated understanding. Benefits and risks of the procedure were described at length. Informed consent was obtained. DESCRIPTION: The patient was brought into the operating room theater. Preoperatively he had received Lovenox subcutaneously for DVT prophylaxis. Additionally he had Peridex oral solution as an oral decontaminant. After general induction, the abdomen was prepped and draped in standard sterile fashion. An Ioban draping was placed along the abdomen. Figueroa catheter was placed. A robotic da Praveen Xi system was prepped and primed. The xiphoid to umbilicus measured 25 cm. At 15 cm from the xiphoid, proposed port sites were marked with indelible marker along the anterior axillary line bilaterally, mid axillary line bilaterally with each ports were marked 10 to 15 cm from each other. The special events assistant port was marked along the left lateral abdominal wall. The robotic stapler port was marked for the right midclavicular line. A 5 mm 0 degrees laparoscopic trocar entry was performed along the left upper quadrant. The abdomen was insufflated to 15 mmHg pressure he tolerated well. Diagnostic laparoscopy demonstrated no injury to bowel, viscera, or mesentery. The liver surface was remarkable for fatty liver disease. The liver edge was round with hepatomegaly. No injury had occurred to the small bowel or viscera. Along the hiatus no evidence of large prominent hiatal hernia was encountered. A 8 mm port was placed along the right upper abdominal wall after exchanging the 5 mm port. A separate 8 mm port was placed along the left lateral abdominal wall. Please note that the ports were placed at least 20 cm away from the target anatomy. Care was taken to check each robotic arms were safely away from collision with the bed or the patient. At the epigastrium, a median sized Shari liver retractor was placed under direct visualization with the Iron Technical Illustrator placed under the right shoulder of the patient. Next, 12-mm robot stapler port was placed along the right upper quadrant. The camera 8-mm port was maintained along the epigastrium. The patient was repositioned in reverse Trendelenburg position at 14-degrees after lowering the bed. The robot was docked along the left side of the patient. Using a grasper for arm 4, a veseel sealer for arm 3, including grasper for arm 1, the robotic system was docked and primed as described. Instruments were interchanged by the special events assistant for stapler loads. The camera was placed at 30-degrees down. I had sat at the console. The pylorus was identified and 6 cm proximally along the greater curvature of the stomach, the short gastrics were mobilized upwards to the angle of His using a vessel sealer. Hemostasis was excellent during this portion of the procedure. Next, the upper pole of the stomach was adherent to the left marybel, which was gently dissected free using atraumatic grasper. Moderate redundancy of the posterior upper pole of the stomach was identified. The nursing senior executive compensation analyst placed a 40-Vincentian blunted tip bougie into the stomach. Robotic stapler green loads 45 mm x 10 were used to create the sleeve. Initial firing was across the antrum of the stomach towards the angle of His. The staple line was completely hemostatic and linear without corkscrewing. Hemostasis was excellent. The space from the angularis incisura of the sleeve was approximately 4 cm. For hemostasis, a plastic clip waw placed along the staple line inferiorly. I then went to the head of the bed to perform the intraoperative esophagogastroduodenoscopy leak test. The upper pole of the stomach was bathed using normal saline solution. The scope was withdrawn with careful inspection along the staple line for which no leaks were found along the entire length. Additionally, the sleeve was completely hemostatic without any encroachment along the angularis incisura. Its topology was a soft "J". No stricture was encountered upon placement of the scope. The GI tract was desufflated. The patient tolerated this portion of the procedure well. Laxity along the lower esophageal sphincter was encountered consistent with Hill grade 2 lower esophageal valve. The scope was completely withdrawn. The robot was undocked. I then rescrubbed into case, whereby the irrigation fluid was aspirated from the abdominal cavity. Tisseel fibrin sealant was placed along the entire staple length. Once dried the Shari liver retractor was removed. Attention was now brought to removal of the specimen. The distal end of the sleeve gastrectomy specimen was brought out through the 12 mm port at the left upper quadrant. The specimen was gently removed en total , corresponding to 32 cm x 5 cm sleeve gastrectomy specimen. No contamination had occurred during this process. All instruments and pneumoperitoneum including irrigation fluid was removed from the abdominal cavity. The 12 mm port site was irrigated with warm normal saline solution and diluted hydron peroxide. The 12-mm port site was reapproximated using 0 Vicryl and Jeff-Janessa of the left upper quadrant. The final incisions were closed using subcuticular interrupted suture of 4-0 Monocryl. Dermabond was applied to the skin once the skin had been cleansed. OptiFoam dressing was placed along the stomach extraction site. At the end of the procedure, needle, sponge, and instrument count was verified correct by the surgical instrument mechanic. The patient was taken to the postanesthesia care unit in stable condition. He had tolerated the procedure well. Intraoperative films and findings were reviewed with the patient's family. FINDINGS: 1. Negative intraoperative esophagogastrojejunoscopy leak test. 2. No large hiatus hernia. 3. Total of 10 staplers used including 10 - 45 mm green robot vidal used to create the gastric sleeve. 4. Xiphoid to umbilicus of 25 cm. 5. Moderate redundant upper posterior pole of the stomach. 6. Sleeve gastrectomy 34 x 5 cm 7. Additional clip placed along the distal portion of the sleeve 8. Moderate hepatomegaly with fatty liver disease 9. Extremely large stomach
[2017-11-21] MEDS ORDERED: fentaNYL (PF) 50 MCG/ML 2 ML AMP IVP ONE (18:40)
[2017-11-21] MEDS: ALBUTEROL NEBULIZED 2.5 MG/3 ML INHALATION SCH (19:44)
[2017-11-21] MEDS: 0.9% NACL WITH KCL 20 MEQ/L 1,000 ML IV SCH (20:06)
[2017-11-21] MEDS: SIMETHICONE 40 MG/0.6 ML DROPS 2,000 MG/30 ML BOTTLE PO SCH ×2 (20:07→22:54)
[2017-11-21] MEDS: HYOSCYAMINE ORAL DROPS 1.875 MG/15 ML BOTTLE PO SCH ×2 (20:07→22:54)
[2017-11-21] MEDS: AMPICILLIN-SULBACTAM 3 GM in SODIUM CHLORIDE 0.9% 100 ML IVPB SCH ×2 (20:46→22:54)
[2017-11-21] MEDS: HYDROcodone/APAP 15 ML SOLUTION PO PRN (22:55)
[2017-11-22] MEDS: 0.9% NACL WITH KCL 20 MEQ/L 1,000 ML IV SCH ×2 (05:21→10:02)
[2017-11-22] MEDS: HYOSCYAMINE ORAL DROPS 1.875 MG/15 ML BOTTLE PO SCH ×3 (05:21→18:00)
[2017-11-22] MEDS: SIMETHICONE 40 MG/0.6 ML DROPS 2,000 MG/30 ML BOTTLE PO SCH ×3 (05:21→18:00)
[2017-11-22 07:29] LABS: Anion Gap 9 mmol/L; Calcium 8.8 mg/dL (8.4-10.2); Carbon Dioxide 25 mmol/L (22-30); Chloride 108 mmol/L (98-107); Sodium 142 mmol/L (137-145)
[2017-11-22 07:30] LABS: Basophils % (A) 0 %; Eosinophils # (A) 0.1 k/uL (0-0.7); Eosinophils % (A) 1 %; HCT 42.5 % (39.0-53.0); HGB 13.9 gm/dL (13.0-17.5); Lymphocytes # (A) 1.6 k/uL (1.0-4.8); Lymphocytes % (A) 13 %; MCH 26.2 pg (25.0-35.0); MCHC 32.7 g/dL (31.0-37.0); MCV 80.3 fL (80.0-100.0); Mean Platelet Volume 8.5; Monocytes # (A) 1.1 k/uL (0-1.0); Monocytes % (A) 8 %; Neutrophils % (A) 77 %; Platelet Count 265 k/uL (150-450); RBC 5.29 m/uL (4.30-5.90); RDW 13.8 % (11.5-15.5); WBC 12.9 k/uL (3.8-10.6)
[2017-11-22 07:35] LABS: Blood Urea Nitrogen 11 mg/dL (9-20); Potassium 5.8 mmol/L (3.5-5.1)
[2017-11-22] MEDS ORDERED: 0.9% NACL WITH KCL 20 MEQ/L 1,000 ML IV SCH (08:00)
[2017-11-22] MEDS: ALBUTEROL NEBULIZED 2.5 MG/3 ML INHALATION SCH ×4 (09:09→20:35)
--- NOTE | 2017-11-22 10:17 | FL ---
EXAMINATION TYPE: FL UGI DATE OF EXAM: 11/22/2017 COMPARISON: NONE HISTORY: Post gastric sleeve TECHNIQUE: A single contrast UGI study is performed. FINDINGS: Contrast passes from the distal esophagus through the gastric sleeve with mild hesitancy. N o extravasation of contrast is evident. No free air is noted during this examination. Overhead radiographs were obtained which are unremarkable. 53 seconds of fluoroscopy time was provided for the procedure. 9 images were obtained. IMPRESSIONS: 1. Normal post gastric sleeve without obstruction or hesitancy. No extravasation.
[2017-11-22] MEDS: PANTOPRAZOLE 40 MG/10 ML VIAL IV SCH (10:51)
[2017-11-22] MEDS: HYDROCHLOROTHIAZIDE 25 MG TAB PO SCH (10:52)
[2017-11-22] MEDS: ENOXAPARIN 40 MG/0.4 ML SYRINGE SQ SCH (10:52)
--- NOTE | 2017-11-22 13:52 | P.PN ---
<India Negron - Last Filed: 11/22/17 13:52> Subjective Progress Note Date: 11/22/17 42-year-old male seen at the bedside sitting up in a chair. postop November 21 Robotic assisted daVinci Xi laparoscopic sleeve gastrectomy for morbid obesity potassium this morning 5.8 sats on 2 L are 99% afebrile heart rate in the 70s reportedly is taking a bariatric clear liquid diet Objective - Vital Signs Vital signs: Vital Signs Temp 98.2 F 11/22/17 07:00 Pulse 72 11/22/17 12:55 Resp 16 11/22/17 07:00 BP 144/85 11/22/17 07:00 Pulse Ox 100 11/22/17 12:51 Intake & Output 11/21/17 11/22/17 11/22/17 18:59 06:59 18:59 Intake Total 2400 700 Output Total 425 900 Balance 1974 - Weight 168.2 kg Intake: IV 2400 450 Intake, IV Titration 250 Amount 0.9% NaCl with KCl 20 Meq 150 /l 1,000 ml @ 150 mls/hr IV .Q6H40M [facility] Rx#: [id number] Ampicillin-Sulbactam 3 gm 100 In Sodium Chloride 0.9% 100 ml @ 100 mls/hr IVPB Q6HR [facility] Rx#:[id number] Output: Urine 400 900 Estimated Blood Loss 25 Other: Voiding Method Urinal # Voids 1 - Exam Physical exam 42-year-old male sitting up in a chair appears in no acute distress Lungs adequate air movement bilaterally on room air sats are 99% Heart S1-S2 audible regular Abdomen soft obese surgical incision sites dressing dry states urinating no difficulty tolerating bariatric clear liquid reports of nausea vomiting Extremities no edema noted - Labs CBC & Chem 7: 11/22/17 06:48 11/22/17 06:48 Labs: Abnormal Lab Results - Last 24 Hours (Table) 11/22/17 11/22/17 Range/Units 06:48 06:48 WBC 12.9 H (3.8-10.6) k/uL Neutrophils # 10.0 H (1.3-7.7) k/uL Monocytes # 1.1 H (0-1.0) k/uL Potassium 5.8 H (3.5-5.1) mmol/L Chloride 108 H (98-107) mmol/L Assessment and Plan Assessment: Impression Morbid obesity due to excessive calories Body mass index 61.7 initially current 58.1 Hypertensive heart disease Obstructive sleep apnea Osteoarthritis involving hips, knees and lower back Family history of morbid obesity Obstructive sleep apnea Supraventricular tachycardia Hyperkalemia Robotic assisted daVinci Xi laparoscopic sleeve gastrectomy for morbid obesity done November 21 Plan Continue postop bariatric care Bariatric clear diet as ordered Remove the potassium from the IV start 0.9 Check a BMP now follow up on results Home meds as appropriate Probable discharge soon The above impression and plan of care have been discussed and directed by signing physician. [place] Negron nurse practitioner acting as scribe for signing physician. <Mallorie Owen N - Last Filed: 11/22/17 19:25> Objective - Vital Signs Vital signs: Vital Signs Temp 98.5 F 11/22/17 14:16 Pulse 72 11/22/17 16:21 Resp 16 11/22/17 14:16 BP 140/84 11/22/17 14:16 Pulse Ox 97 11/22/17 14:16 Intake & Output 11/22/17 11/22/17 11/23/17 06:59 18:59 06:59 Intake Total 700 800 Output Total 900 Balance -200 800 Weight 168.2 kg Intake: IV 450 Intake, IV Titration 250 750 Amount 0.9% NaCl with KCl 20 Meq 750 /l 1,000 ml @ 100 mls/hr IV .Q10H [facility] Rx#: [id number] 0.9% NaCl with KCl 20 Meq 150 /l 1,000 ml @ 150 mls/hr IV .Q6H40M [facility] Rx#: [id number] Ampicillin-Sulbactam 3 gm 100 In Sodium Chloride 0.9% 100 ml @ 100 mls/hr IVPB Q6HR [facility] Rx#:[id number] Oral 50 Output: Urine 900 Other: Voiding Method Urinal # Voids 2 - Labs CBC & Chem 7: 11/22/17 06:48 11/22/17 13:42 Labs: Abnormal Lab Results - Last 24 Hours (Table) 11/22/17 11/22/17 11/22/17 Range/Units 06:48 06:48 13:42 WBC 12.9 H (3.8-10.6) k/uL Neutrophils # 10.0 H (1.3-7.7) k/uL Monocytes # 1.1 H (0-1.0) k/uL Potassium 5.8 H 5.2 H (3.5-5.1) mmol/L Chloride 108 H 108 H (98-107) mmol/L Assessment and Plan (1) Morbid obesity due to excess calories Current Visit: Yes Status: Acute Code(s): E66.01 - MORBID (SEVERE) OBESITY DUE TO EXCESS CALORIES SNOMED Code(s): 242586268 (2) BMI 60.0-69.9, adult Current Visit: Yes Status: Acute Code(s): Z68.44 - BODY MASS INDEX (BMI) 60.0-69.9, ADULT SNOMED Code(s): 847340042 (3) Sleep apnea Current Visit: Yes Status: Acute Code(s): G47.30 - SLEEP APNEA, UNSPECIFIED SNOMED Code(s): 49200886 (4) Tachycardia Current Visit: Yes Status: Acute Code(s): R00.0 - TACHYCARDIA, UNSPECIFIED SNOMED Code(s): 0702659 (5) Hypertensive heart disease Current Visit: Yes Status: Acute Code(s): I11.9 - HYPERTENSIVE HEART DISEASE WITHOUT HEART FAILURE SNOMED Code(s): 15722256 (6) Hepatomegaly Current Visit: Yes Status: Acute Code(s): R16.0 - HEPATOMEGALY, NOT ELSEWHERE CLASSIFIED SNOMED Code(s): 79596473 Plan: 1. Patient reported dizziness. Will adjust medications accordingly. 2. Repeat labs. 3. Possible discharge in 24 hours
[2017-11-22 13:54] VITALS: BMI 58.1
[2017-11-22 14:12] LABS: Anion Gap 10 mmol/L; Blood Urea Nitrogen 10 mg/dL (9-20); Calcium 9.2 mg/dL (8.4-10.2); Carbon Dioxide 26 mmol/L (22-30); Chloride 108 mmol/L (98-107); Glucose 89 mg/dL (74-99); Potassium 5.2 mmol/L (3.5-5.1); Sodium 144 mmol/L (137-145)
[2017-11-22 14:21] LABS: Glucose,Whole Blood 78 mg/dL (75-99)
[2017-11-22] MEDS: SODIUM CHLORIDE 0.9% 1,000 ML IV SCH ×2 (15:44→21:07)
[2017-11-22] MEDS ORDERED: SCOPOLAMINE 1.5MG/72HR PATCH TRANSDERM SCH (16:45)
[2017-11-22] MEDS: HYDROcodone/APAP 15 ML SOLUTION PO PRN (20:31)
[2017-11-23] MEDS: SIMETHICONE 40 MG/0.6 ML DROPS 2,000 MG/30 ML BOTTLE PO SCH ×3 (00:44→12:39)
[2017-11-23] MEDS: HYOSCYAMINE ORAL DROPS 1.875 MG/15 ML BOTTLE PO SCH ×3 (00:44→12:39)
[2017-11-23] MEDS: LACTATED RINGERS 1,000 ML IV SCH (05:50)
[2017-11-23] MEDS: SODIUM CHLORIDE 0.9% 1,000 ML IV SCH (05:52)
[2017-11-23 07:30] LABS: Anion Gap 9 mmol/L; Blood Urea Nitrogen 8 mg/dL (9-20); Carbon Dioxide 29 mmol/L (22-30); Chloride 104 mmol/L (98-107); Glucose 97 mg/dL (74-99); Potassium 3.8 mmol/L (3.5-5.1); Sodium 142 mmol/L (137-145)
[2017-11-23] MEDS: ENOXAPARIN 40 MG/0.4 ML SYRINGE SQ SCH (07:51)
[2017-11-23] MEDS: HYDROCHLOROTHIAZIDE 25 MG TAB PO SCH (07:52)
[2017-11-23] MEDS: PANTOPRAZOLE 40 MG/10 ML VIAL IV SCH (07:52)
[2017-11-23] MEDS ORDERED: BISACODYL 5 MG TABLET.DR PO PRN (08:00)
[2017-11-23] MEDS: ALBUTEROL NEBULIZED 2.5 MG/3 ML INHALATION SCH ×2 (08:07→11:43)
[2017-11-23 08:23] VITALS: RESP 22
[2017-11-23 11:19] VITALS: BP 124/69; PULSE 78; TEMP 98.4
--- NOTE | 2017-11-23 13:56 | P.DS ---
<India Negron - Last Filed: 11/23/17 13:48> Providers Date of admission: 11/21/17 12:09 Expected date of discharge: 11/23/17 Attending physician: Mallorie Owen Primary care physician: Darrian Rosario [facility] Course: 42-year-old male who presented on elective basis to undergo surgical approach for morbid obesity. Patient has a long-standing morbid obesity. From his morbid obesity has developed hypertension, obstructive sleep apnea. Patient elected to undergo a sleep gastrectomy done on November 21 postop November 21 Robotic assisted daVinci Xi laparoscopic sleeve gastrectomy for morbid obesity At the time of discharge patient was up ambulatory on the unit passing gas and tolerating the bariatric clear liquid diet electrolytes within normal limits surgical incision sites no evidence of any redness Impression Morbid obesity due to excessive calories Body mass index 61.7 initially current 58.1 Hypertensive heart disease Obstructive sleep apnea Osteoarthritis involving hips, knees and lower back Family history of morbid obesity Obstructive sleep apnea Supraventricular tachycardia Hyperkalemia corrected resolved Robotic assisted daVinci Xi laparoscopic sleeve gastrectomy for morbid obesity done November 21 The above impression and plan of care have been discussed and directed by signing physician. [place] Negron nurse practitioner acting as scribe for signing physician. Plan - Discharge Summary Discharge Rx Participant: Yes New Discharge Prescriptions: New Bisacodyl [Dulcolax] 5 mg PO DAILY PRN #10 tablet.dr RAMESH Reason: Constipation Omeprazole 40 mg PO DAILY #90 capsule. Ondansetron Odt [Zofran Odt] 4 mg PO Q8HR PRN #9 tab PRN Reason: Nausea Simethicone 40 mg/0.6 ml Drops [Mylicon Drops] 40 mg PO PCHS PRN #30 ml PRN Reason: Gas HYDROcodone/APAP [Comstock Elixir 7.5-325Mg/15Ml] 15 ml PO Q6H PRN #480 solution PRN Reason: Pain Discontinued Ergocalciferol (Vitamin D2) [Vitamin D2] 50,000 unit PO MO Omeprazole 40 mg PO DAILY #30 capsule. Multivmilka Thera [Multivitamin (formulary)] 1 tab PO DAILY Ascorbic Acid [Vitamin C] 500 mg PO DAILY No Action Hydrochlorothiazide 25 mg PO DAILY Discharge Medication List Hydrochlorothiazide 25 mg PO DAILY 09/29/17 [History] Bisacodyl [Dulcolax] 5 mg PO DAILY PRN #10 tablet. 11/22/17 [Rx] HYDROcodone/APAP [Comstock Elixir 7.5-325Mg/15Ml] 15 ml PO Q6H PRN #480 solution [Rx] Omeprazole 40 mg PO DAILY #90 capsule. 11/22/17 [Rx] Ondansetron Odt [Zofran Odt] 4 mg PO Q8HR PRN #9 tab 11/22/17 [Rx] Simethicone 40 mg/0.6 ml Drops [Mylicon Drops] 40 mg PO PCHS PRN #30 ml [Rx] Follow up Appointment(s)/Referral(s): Bariatric Center,. [NON-STAFF] - 11/25/17 10:00 am Patient Instructions/Handouts: *Surgery [facility] - Scopalamine Patch Instructions, Nutrition after Bariatric Surgery (DC), Laparoscopic Sleeve Gastrectomy (DC) Activity/Diet/Wound Care/Special Instructions: No lifting over 4 pounds in 4 weeks. May shower. No bathtub soaks. Please contact the bariatric center for any issues. Discharge Disposition: HOME SELF-CARE <Mallorie Owen N - Last Filed: 11/23/17 19:03> - Discharge Diagnosis(es) (1) Morbid obesity due to excess calories Status: Acute (2) BMI 60.0-69.9, adult Status: Acute (3) Sleep apnea Status: Acute (4) Tachycardia Status: Acute (5) Hypertensive heart disease Status: Acute (6) Hepatomegaly Status: Acute
--- NOTE | 2017-11-23 13:59 | P.PN ---
<Lyudmila Negronne M - Last Filed: 11/23/17 13:56> Subjective Progress Note Date: 11/23/17 42-year-old male seen and examined at bedside patient has been up ambulating in the hallway passing gas denies dizziness lightheadedness. Denies shortness breath or chest pain. Patient states he's anxious to be discharged. Potassium this morning is 3.8. Electrolytes within normal limits. Surgical incision sites no redness Robotic assisted daVinci Xi laparoscopic sleeve gastrectomy for morbid obesity done November 21 Objective - Vital Signs Vital signs: Vital Signs Temp 98.4 F 11/23/17 07:00 Pulse 101 H 11/23/17 08:20 Resp 22 11/23/17 08:20 BP 124/69 11/23/17 07:00 Pulse Ox 97 11/23/17 08:20 Intake & Output 11/22/17 11/23/17 11/23/17 18:59 06:59 18:59 Intake Total 800 1640 Output Total 1420 Balance 800 220 Weight 168.2 kg Intake: Intake, IV Titration 750 1000 Amount 0.9% NaCl with KCl 20 Meq 750 /l 1,000 ml @ 100 mls/hr IV .Q10H [facility] Rx#: [id number] Sodium Chloride 0.9% 1, 1000 000 ml @ 125 mls/hr IV . Q8H [facility] Rx#:[id number] Oral 50 640 Output: Urine 1420 Other: Voiding Method Urinal # Voids 2 2 - Exam Physical exam Pleasant 42-year-old male up ambulating in the hallway denies dizziness lightheadedness shortness of breath chest pain Lungs adequate air movement bilaterally on room air sats 95% no cough Heart S1-S2 audible regular Abdomen obese soft nontender passing gas urinating no difficulty tolerating bariatric clear nondistended bowel tones present surgical dressing site dry Extremities no edema - Labs CBC & Chem 7: 11/22/17 06:48 11/23/17 06:51 Labs: Abnormal Lab Results - Last 24 Hours (Table) 11/22/17 11/23/17 Range/Units 13:42 06:51 Potassium 5.2 H (3.5-5.1) mmol/L Chloride 108 H (98-107) mmol/L BUN 8 L (9-20) mg/dL Assessment and Plan Assessment: Impression Morbid obesity due to excessive calories Body mass index 61.7 initially current 58.1 Hypertensive heart disease Obstructive sleep apnea Osteoarthritis involving hips, knees and lower back Family history of morbid obesity Obstructive sleep apnea Supraventricular tachycardia Hyperkalemia Robotic assisted daVinci Xi laparoscopic sleeve gastrectomy for morbid obesity done November 21 Plan Continue postop bariatric care Bariatric clear diet as ordered Home meds as appropriate Probable discharge today The above impression and plan of care have been discussed and directed by signing physician. [place] Negron nurse practitioner acting as scribe for signing physician. <Mallorie Owen - Last Filed: 11/23/17 19:03> Objective - Vital Signs Vital signs: Vital Signs Temp 98.4 F 11/23/17 07:00 Pulse 101 H 11/23/17 08:20 Resp 22 11/23/17 08:20 BP 124/69 11/23/17 07:00 Pulse Ox 97 11/23/17 08:20 Intake & Output 11/23/17 11/23/17 11/24/17 06:59 18:59 06:59 Intake Total 1640 Output Total 1420 Balance 220 Intake: Intake, IV Titration 1000 Amount Sodium Chloride 0.9% 1, 1000 000 ml @ 125 mls/hr IV . Q8H [facility] Rx#:[id number] Oral 640 Output: Urine 1420 Other: Voiding Method Urinal # Voids 2 - Labs CBC & Chem 7: 11/22/17 06:48 11/23/17 06:51 Labs: Abnormal Lab Results - Last 24 Hours (Table) 11/23/17 Range/Units 06:51 BUN 8 L (9-20) mg/dL Assessment and Plan (1) Morbid obesity due to excess calories Status: Acute Code(s): E66.01 - MORBID (SEVERE) OBESITY DUE TO EXCESS CALORIES SNOMED Code(s): 972774292 (2) BMI 60.0-69.9, adult Status: Acute Code(s): Z68.44 - BODY MASS INDEX (BMI) 60.0-69.9, ADULT SNOMED Code(s): 297131841 (3) Sleep apnea Status: Acute Code(s): G47.30 - SLEEP APNEA, UNSPECIFIED SNOMED Code(s): 15075175 (4) Tachycardia Status: Acute Code(s): R00.0 - TACHYCARDIA, UNSPECIFIED SNOMED Code(s): 0439382 (5) Hypertensive heart disease Status: Acute Code(s): I11.9 - HYPERTENSIVE HEART DISEASE WITHOUT HEART FAILURE SNOMED Code(s): 39500383 (6) Hepatomegaly Status: Acute Code(s): R16.0 - HEPATOMEGALY, NOT ELSEWHERE CLASSIFIED SNOMED Code(s): 44442370
--- NOTE | 2017-11-25 12:49 | CDI ---
Last Revision, July 2017 Documentation Clarification Form Date: 11/27/17 From: Monica Almaguer Phone: If you have a question regarding this query, please contact Justine Diggs at [phone]. Admit Date: 11/21/2017 12:09:00 PM Patient Name: Neil Soliz Visit Number: [id number] Discharge Date: 11/23/17 ATTENTION: The Clinical Documentation Specialists (CDI) and [facility] Coding Staff appreciate your assistance in clarifying documentation. Please respond to the clarification below the line at the bottom and electronically sign. The CDI & [facility] Coding staff will review the response and follow-up if needed. Please note: Queries are made part of the Legal Health Record. If you have any questions, please contact the author of this message via ITS. Dr. Mallorie Owen H. pylori gastritis is documented in the H&P and in the op note under the pre- op and post-op dagnoses. Patient history/risk factors: Patient has a history of morbid obesity and GERD. Pathology findings: Benign gastric mucosa with mild chronic gastritis. In your professional opinion, can you please clarify the acuity of the gastritis ? Acute Chronic Other, please specify Unable to determine -- only pathologist can clarify this query! MTDD
== END 2017-11-23 15:22 | disposition home or self-care (01) | DRG 620 ==
LOC: 2ORMAIN 12:09 → 3SUR 17:50
PROVIDERS: ADMIT Surgery Plastic and Reconstructive Surgery; ATTEND Surgery Plastic and Reconstructive Surgery
PROC: 0DJ08ZZ Inspection of Upper Intestinal Tract, Via Natural or Artificial Opening Endoscopic (ICD-10-PCS; 2017-11-21)
PROC: 0DB64Z3 Excision of Stomach, Percutaneous Endoscopic Approach, Vertical (ICD-10-PCS; principal; 2017-11-21 14:35)
DX: E66.01 Morbid (severe) obesity due to excess calories (principal); I47.1 Supraventricular tachycardia; E87.5 Hyperkalemia; I11.9 Hypertensive heart disease without heart failure; K76.0 Fatty (change of) liver, not elsewhere classified; Z68.44 Body mass index [BMI] 60.0-69.9, adult; K29.60 Other gastritis without bleeding; G47.33 Obstructive sleep apnea (adult) (pediatric); G89.29 Other chronic pain; K21.9 Gastro-esophageal reflux disease without esophagitis; B96.81 Helicobacter pylori [H. pylori] as the cause of diseases classified elsewhere; M16.0 Bilateral primary osteoarthritis of hip; M17.0 Bilateral primary osteoarthritis of knee; M47.9 Spondylosis, unspecified; Z79.899 Other long term (current) drug therapy; Z83.3 Family history of diabetes mellitus; Z84.89 Family history of other specified conditions
CPT/HCPCS: 74240; 80048; 80051; 82310; 82565; 83735; 84100; 84520; 85025; 86850; 86900; 86901; 88307; 94640; 94760; 94762

== ENCOUNTER → 2017-11-25 | Outpatient (CLI) | payer BC ==
[2017-11-25] MEDS: SODIUM CHLORIDE 0.9% 1,000 ML IV SCH ×2 (10:30→11:30)
[2017-11-25 10:50] VITALS: BP 136/78; PULSE 97; TEMP 98.7; BMI 56.0
[2017-11-25 12:36] VITALS: RESP 18
== END | disposition home or self-care (01) ==
LOC: BARWHC3 10:00
PROVIDERS: ATTEND Surgery Plastic and Reconstructive Surgery
DX: E86.0 Dehydration (principal)
CPT/HCPCS: 96360; 96361; 99211

== ENCOUNTER → 2017-12-21 | Outpatient (CLI) | payer BC ==
[2017-12-21 16:35] VITALS: BP 119/89; PULSE 93; RESP 16; TEMP 98.3; BMI 53.4
--- NOTE | 2017-12-21 17:52 | P.PN ---
Subjective Progress Note Date: 12/21/17 DATE OF SERVICE: 12/21/2017 CHIEF COMPLAINT: Status post sleeve gastrectomy HISTORY OF PRESENT ILLNESS: Neil Soliz is a 42-year-old male is status post sleeve gastrectomy 11/21/2017. He is 1 month out. His last visit was 11/30. At height of 5 feet 7.25 inches, his ideal body weight is 158 pounds. He was 391 pounds. Today he is 343 pounds from 360 pounds. She has lost 17 pounds in 3 weeks. His total weight loss is 48 pounds, lifetime. Percent excess weight loss is 20 %. His body mass index is decreased from 60.9 to 53.5. He is 185 pounds overweight. He has stopped his blood pressure medications. He reports mild dizziness which has improved since last week. No reports of fevers or chills. No reports of nausea or vomiting. He is still snoring. PHYSICAL EXAM: VITAL SIGNS: Height 5 foot 7.25 inches, weight 343 pounds. BMI 53.5. Vital Signs Temp 98.3 F 12/21/17 16:32 Pulse 93 12/21/17 16:32 Resp 16 12/21/17 16:32 BP 119/89 12/21/17 16:32 Pulse Ox Intake & Output 12/20/17 12/21/17 12/21/17 18:59 06:59 18:59 Weight 156.036 kg GENERAL: Well-developed in no acute distress. HEENT: No scleral icterus. Extraocular movements grossly intact. Hears conversational speech. No nasal drainage. NECK: Supple without lymphadenopathy. CHEST: Nonlabored respirations with equal bilateral excursions. CARDIOVASCULAR: Regular rate and regular rhythm. Distal 2+ pulses. ABDOMEN: Obese, soft, nontender, nondistended. No signs of infection. No cellulitis. Incisions are granulated. MUSCULOSKELETAL: No clubbing, cyanosis. Gross strength 5/5 distal lower extremities. No pre-tibial pitting edema. NEURO: No focal or lateralizing signs. Cranial nerves 2 through 12 grossly within normal limits. PSYCH: Appropriate affect. Alert and oriented to person, place and time. SKIN: Good skin turgor. Well perfused. ASSESSMENT: 1. Morbid obesity due to excess calories. 2. Body mass index of 60.9 to 53.5 3. Osteoarthritis of the knees. 4. Osteoarthritis of the hips. 5. Osteoarthritis of the lower back. 6. Obstructive sleep apnea. 7. Hypertensive heart disease. 8. Status post sleeve gastrectomy PLAN: 1. She has great energy. Start multivitamins. 2. She is encouraged to stay active. 3. Get bariatric labs. 4. Follow-up in February 2018. Objective - Vital Signs Vital signs: Vital Signs Temp 98.3 F 12/21/17 16:32 Pulse 93 12/21/17 16:32 Resp 16 12/21/17 16:32 BP 119/89 12/21/17 16:32 Pulse Ox Intake & Output 12/20/17 12/21/17 12/21/17 18:59 06:59 18:59 Weight 156.036 kg
== END | disposition home or self-care (01) ==
LOC: BARWHC3 16:22
PROVIDERS: ATTEND Surgery Plastic and Reconstructive Surgery
DX: Z48.815 Encounter for surgical aftercare following surgery on the digestive system (principal); E66.01 Morbid (severe) obesity due to excess calories; M17.0 Bilateral primary osteoarthritis of knee; M16.0 Bilateral primary osteoarthritis of hip; M19.90 Unspecified osteoarthritis, unspecified site; G47.33 Obstructive sleep apnea (adult) (pediatric); I11.9 Hypertensive heart disease without heart failure; I50.9 Heart failure, unspecified; Z98.84 Bariatric surgery status; Z68.43 Body mass index [BMI] 50.0-59.9, adult; Z71.3 Dietary counseling and surveillance
CPT/HCPCS: 97803; 99211

== ENCOUNTER → 2017-12-23 | Outpatient (CLI) | payer BC ==
[2017-12-23 07:37] LABS: HCT 44.4 % (39.0-53.0); HGB 14.4 gm/dL (13.0-17.5); MCH 26.2 pg (25.0-35.0); MCHC 32.4 g/dL (31.0-37.0); MCV 80.7 fL (80.0-100.0); Mean Platelet Volume 7.1; Platelet Count 226 k/uL (150-450); WBC 5.8 k/uL (3.8-10.6)
[2017-12-23 07:49] LABS: INR 1.1 (<1.2); Partial Thromboplastin Time 23.9 sec (22.0-30.0); Prothrombin Time 10.7 sec (9.0-12.0)
[2017-12-23 08:11] LABS: ALT 39 U/L (21-72); AST 30 U/L (17-59); Albumin 3.9 g/dL (3.5-5.0); Alkaline Phosphatase 90 U/L (38-126); Anion Gap 13 mmol/L; Blood Urea Nitrogen 13 mg/dL (9-20); Calcium 9.2 mg/dL (8.4-10.2); Carbon Dioxide 26 mmol/L (22-30); Chloride 106 mmol/L (98-107); Cholesterol 131 mg/dL (<200); Glucose 94 mg/dL (74-99); HDL Cholesterol 29 mg/dL (40-60); LDL Cholesterol,Calculated 84 mg/dL (0-99); Magnesium 1.9 mg/dL (1.6-2.3); Phosphorus 3.4 mg/dL (2.5-4.5); Sodium 145 mmol/L (137-145); Total Bilirubin 0.6 mg/dL (0.2-1.3); Total Protein 7.3 g/dL (6.3-8.2); Triglycerides 88 mg/dL (<150)
[2017-12-23 11:37] LABS: Parathyroid Hormone Intact 44.5 pg/mL (14.0-72.0)
[2017-12-23 12:44] LABS: Iron Saturation 26.09 (15.00-50.00)
[2017-12-23 12:47] LABS: Folate, Serum 9.6 ng/mL
[2017-12-23 17:08] LABS: Hemoglobin A1C 5.3 % (4.0-6.0)
[2017-12-26 15:05] LABS: Zinc, Serum 99 ug/dL (60-130)
[2017-12-27 04:48] LABS: Vitamin A 31 ug/dL (38-106)
[2017-12-27 04:57] LABS: Vitamin B1 43 ug/L (38-122)
[2017-12-27 17:20] LABS: Selenium 113 mcg/L (63-160)
== END | disposition home or self-care (01) ==
LOC: LABPAT 06:59
PROVIDERS: ATTEND Surgery Plastic and Reconstructive Surgery
DX: E21.1 Secondary hyperparathyroidism, not elsewhere classified (principal); E89.1 Postprocedural hypoinsulinemia; D50.9 Iron deficiency anemia, unspecified; E44.0 Moderate protein-calorie malnutrition; E55.9 Vitamin D deficiency, unspecified; N19 Unspecified kidney failure; K50.90 Crohn's disease, unspecified, without complications
CPT/HCPCS: 36415; 80053; 80061; 82306; 82525; 82607; 82728; 82746; 83036; 83540; 83550; 83735; 83970; 84100; 84134; 84255; 84425; 84443; 84590; 84630; 85027; 85610; 85730

== ENCOUNTER → 2018-03-01 | Outpatient (CLI) | payer BC ==
[2018-03-01 16:44] VITALS: BP 111/70; PULSE 82; TEMP 97.8; BMI 47.5
--- NOTE | 2018-03-01 17:09 | P.PN ---
Subjective Progress Note Date: 03/01/18 DATE OF SERVICE: 03/01/2018 CHIEF COMPLAINT: Status post sleeve gastrectomy HISTORY OF PRESENT ILLNESS: Neil Soliz is a 43-year-old male is status post sleeve gastrectomy 11/21/2017. He is 3 months out. He is doing very well. No nausea or vomiting. No gastroesophageal reflux disease. No abdominal pain. His goal is to get to 220 pounds. He also reports skin irritation of panniculitis. At height of 5 feet 7.25 inches, his ideal body weight is 158 pounds. His highest weight was 397 pounds. Today he is 305 pounds from 343 pounds, 2 months ago. He has lost 39 pounds in 2 months. His total weight loss is 92 pounds, lifetime. Percent excess weight loss is 39 %. His body mass index is decreased from 61.8 to 47.5. He is 147 pounds overweight. PHYSICAL EXAM: VITAL SIGNS: Height 5 foot 7.25 inches, weight 305 pounds. BMI 47.5 Vital Signs Temp 97.8 F 03/01/18 16:42 Pulse 82 03/01/18 16:42 Resp BP 111/70 03/01/18 16:42 Pulse Ox GENERAL: Well-developed in no acute distress. HEENT: No scleral icterus. Extraocular movements grossly intact. Hears conversational speech. No nasal drainage. NECK: Supple without lymphadenopathy. CHEST: Nonlabored respirations with equal bilateral excursions. CARDIOVASCULAR: Regular rate and regular rhythm. Distal 2+ pulses. ABDOMEN: Obese, soft, nontender, nondistended. MUSCULOSKELETAL: No clubbing, cyanosis. Gross strength 5/5 distal lower extremities. NEURO: No focal or lateralizing signs. Cranial nerves 2 through 12 grossly within normal limits. PSYCH: Appropriate affect. Alert and oriented to person, place and time. SKIN: Good skin turgor. Well perfused. LABS: Previous labs reviewed consistent with vitamin D deficiency and low prealbumin ASSESSMENT: 1. Morbid obesity due to excess calories. 2. Body mass index of 61.8 to 47.5 3. Osteoarthritis of the knees. 4. Osteoarthritis of the hips. 5. Osteoarthritis of the lower back. 6. Obstructive sleep apnea. 7. Hypertensive heart disease. 8. Status post sleeve gastrectomy 9. Vitamin D deficiency 10. Panniculitis. PLAN: 1. Bariatric metabolic labs. 2. Prescribed Nystatin powder for panniculitis. 3. Follow up in May 2018 4. Vitamin A supplement advised. Objective - Vital Signs Vital signs: Vital Signs Temp 97.8 F 03/01/18 16:42 Pulse 82 03/01/18 16:42 Resp BP 111/70 03/01/18 16:42 Pulse Ox Intake & Output 02/28/18 03/01/18 03/01/18 18:59 06:59 18:59 Weight 138.527 kg - Labs CBC & Chem 7: 03/01/18 17:20 03/01/18 17:20
[2018-03-01 17:38] LABS: HCT 42.2 % (39.0-53.0); MCH 27.3 pg (25.0-35.0); MCHC 33.1 g/dL (31.0-37.0); MCV 82.4 fL (80.0-100.0); Mean Platelet Volume 7.1; Platelet Count 232 k/uL (150-450); RBC 5.13 m/uL (4.30-5.90); RDW 14.7 % (11.5-15.5); WBC 4.9 k/uL (3.8-10.6)
[2018-03-01 17:54] LABS: INR 1.1 (<1.2); Partial Thromboplastin Time 24.2 sec (22.0-30.0); Prothrombin Time 10.3 sec (9.0-12.0)
[2018-03-01 18:10] LABS: ALT 66 U/L (21-72); AST 44 U/L (17-59); Alkaline Phosphatase 88 U/L (38-126); Anion Gap 9 mmol/L; Blood Urea Nitrogen 17 mg/dL (9-20); Carbon Dioxide 29 mmol/L (22-30); Chloride 103 mmol/L (98-107); Cholesterol 145 mg/dL (<200); Glucose 86 mg/dL (74-99); HDL Cholesterol 32 mg/dL (40-60); LDL Cholesterol,Calculated 96 mg/dL (0-99); Phosphorus 3.8 mg/dL (2.5-4.5); Potassium 4.1 mmol/L (3.5-5.1); Sodium 141 mmol/L (137-145); Total Bilirubin 0.3 mg/dL (0.2-1.3); Total Protein 7.3 g/dL (6.3-8.2); Triglycerides 85 mg/dL (<150)
[2018-03-02 00:55] LABS: Parathyroid Hormone Intact 59.5 pg/mL (14.0-72.0)
[2018-03-02 02:39] LABS: Iron Saturation 14.73 (15.00-50.00)
[2018-03-02 02:44] LABS: Hemoglobin A1C 5.3 % (4.0-6.0)
[2018-03-02 02:48] LABS: Vitamin D 25 Hydroxy 87.1 ng/mL (30.0-100.0)
[2018-03-02 02:59] LABS: Folate, Serum 13.6 ng/mL
[2018-03-02 12:03] LABS: Zinc, Serum 65 ug/dL (60-130)
[2018-03-02 13:47] LABS: Vitamin B1 46 ug/L (38-122)
[2018-03-03 05:59] LABS: Vitamin A 30 ug/dL (38-106)
[2018-03-03 17:26] LABS: Selenium 115 mcg/L (63-160)
== END | disposition home or self-care (01) ==
LOC: BARWHC3 16:01
PROVIDERS: ATTEND Surgery Plastic and Reconstructive Surgery
DX: Z09 Encounter for follow-up examination after completed treatment for conditions other than malignant neoplasm (principal); E66.01 Morbid (severe) obesity due to excess calories; M16.0 Bilateral primary osteoarthritis of hip; M17.0 Bilateral primary osteoarthritis of knee; G47.33 Obstructive sleep apnea (adult) (pediatric); I11.9 Hypertensive heart disease without heart failure; E55.9 Vitamin D deficiency, unspecified; M79.3 Panniculitis, unspecified; E50.9 Vitamin A deficiency, unspecified; E21.1 Secondary hyperparathyroidism, not elsewhere classified; E89.1 Postprocedural hypoinsulinemia; D50.9 Iron deficiency anemia, unspecified; K90.9 Intestinal malabsorption, unspecified; N19 Unspecified kidney failure; K50.90 Crohn's disease, unspecified, without complications; Z98.84 Bariatric surgery status; Z68.42 Body mass index [BMI] 45.0-49.9, adult
CPT/HCPCS: 80053; 80061; 82306; 82525; 82607; 82728; 82746; 83036; 83540; 83550; 83735; 83970; 84100; 84134; 84255; 84425; 84443; 84590; 84630; 85027; 85610; 85730; 97803; 99211

== ENCOUNTER → 2018-07-05 | Outpatient (CLI) | payer BC ==
[2018-07-05 16:32] VITALS: BP 121/74; PULSE 60; TEMP 98.2; BMI 45.1
--- NOTE | 2018-07-05 17:01 | P.PN ---
Subjective Progress Note Date: 07/05/18 DATE OF SERVICE: 07/05/2018 CHIEF COMPLAINT: Status post sleeve gastrectomy HISTORY OF PRESENT ILLNESS: Neil Soliz is a 43-year-old male is status post sleeve gastrectomy 11/21/2017. He is 7 months out. He has lost over 120 pounds in 6 months as he had weighted over 410 pounds. He reports slower weight loss. No report of gastroesophageal reflux disease. He is not exercising. At height of 5 feet 7.25 inches, his ideal body weight is 158 pounds. His highest weight was 397 pounds. Today he is 290 pounds from 305 pounds, 4 months ago. He has lost 15 pounds in 4 months. His weight loss is 107 pounds, lifetime. Percent excess weight loss is 45 %. His body mass index is decreased from 61.8 to 45.1. He is 132 pounds overweight. PHYSICAL EXAM: VITAL SIGNS: Height 5 foot 7.25 inches, weight 290 pounds. BMI 45.1 Vital Signs Temp 98.2 F 07/05/18 16:30 Pulse 60 07/05/18 16:30 Resp BP 121/74 07/05/18 16:30 Pulse Ox GENERAL: Well-developed in no acute distress. HEENT: No scleral icterus. Extraocular movements grossly intact. Hears conversational speech. No nasal drainage. NECK: Supple without lymphadenopathy. CHEST: Nonlabored respirations with equal bilateral excursions. CARDIOVASCULAR: Regular rate and regular rhythm. Distal 2+ pulses. ABDOMEN: Obese, soft, nontender, nondistended. MUSCULOSKELETAL: No clubbing, cyanosis. NEURO: No focal or lateralizing signs. Cranial nerves 2 through 12 grossly within normal limits. PSYCH: Appropriate affect. Alert and oriented to person, place and time. SKIN: Good skin turgor. Well perfused. LABS: Previous labs reviewed consistent with vitamin D deficiency and low prealbumin ASSESSMENT: 1. Morbid obesity due to excess calories. 2. Body mass index of 61.8 to 45.1 3. Osteoarthritis of the knees. 4. Osteoarthritis of the hips. 5. Osteoarthritis of the lower back. 6. Obstructive sleep apnea. 7. Hypertensive heart disease. 8. Status post sleeve gastrectomy 9. Vitamin D deficiency 10. Panniculitis. PLAN: 1. Recommend increase cardio and exercise to help with maintenance of weight loss. 2. Recommend bariatric labs advised. Laboratory Last Values WBC 5.7 k/uL (3.8-10.6) 07/05/18 17: RBC 5.51 m/uL (4.30-5.90) 07/05/18 17:23 Hgb 14.9 gm/dL (13.0-17.5) 07/05/18 17: Hct 46.1 % (39.0-53.0) 07/05/18 17: MCV 83.7 fL (80.0-100.0) 07/05/18 17: MCH 27.0 pg (25.0-35.0) 07/05/18 17: MCHC 32.2 g/dL (31.0-37.0) 07/05/18 17: RDW 14.2 % (11.5-15.5) 07/05/18 17: Plt Count 236 k/uL (150-450) 07/05/18 17:23 PT 10.1 sec (9.0-12.0) 07/05/18 17:23 INR 1.0 (<1.2) 07/05/18 17:23 APTT 24.1 sec (22.0-30.0) 07/05/18 17:23 Sodium 142 mmol/L (135-145) 07/05/18 17:23 Potassium 4.1 mmol/L (3.5-5.5) 07/05/18 17: Chloride 106 mmol/L (96-109) 07/05/18 17:23 Carbon Dioxide 29.1 mmol/L (21.6-31.8) 07/05/18 17:23 Anion Gap 6.90 mmol/L (4.00-12.00) 07/05/18 17:23 BUN 14.0 mg/dL (9.0-27.0) 07/05/18 17: Creatinine 1.0 mg/dL (0.6-1.5) 07/05/18 17:23 Est GFR (CKD-EPI)AfAm 104.9 (60.0-200.0) 07/05/18 17: Est GFR (CKD-EPI)NonAf 90.5 (60.0-200.0) 07/05/18 17:23 BUN/Creatinine Ratio 14.00 Ratio (12.00-20.00) 07/05/18 17:23 Glucose 68 mg/dL (70-110) L 07/05/18 17:[address] Glu mg/dL 111 07/05/18 17:23 Hemoglobin A1c 5.5 % (4.0-6.0) 07/05/18 17:23 Calcium 9.1 mg/dL (8.7-10.3) 07/05/18 17:23 Phosphorus 3.8 mg/dL (2.4-5.1) 07/05/18 17:23 Magnesium 2.0 mg/dL (1.5-2.4) 07/05/18 17:23 Iron 52 ug/dL (65-175) L 07/05/18 17:23 TIBC 309 ug/dL (228-460) 07/05/18 17:23 Iron Saturation 16.83 (15.00-50.00) 07/05/18 17:23 Ferritin 51.2 ng/mL (22.0-322.0) 07/05/18 17:23 Total Bilirubin 0.3 mg/dL (0.3-1.2) 07/05/18 17:23 AST 21 U/L (14-35) 07/05/18 17:23 ALT 26 U/L (10-49) 07/05/18 17:23 Alkaline Phosphatase 114 U/L (41-126) 07/05/18 17:23 Total Protein 6.9 g/dL (6.2-8.2) 07/05/18 17:23 Albumin 4.20 g/dL (3.80-4.90) 07/05/18 17:23 Globulin 2.7 g/dL (2.1-3.7) 07/05/18 17:23 Albumin/Globulin Ratio 1.56 g/dL (1.20-2.10) 07/05/18 17:23 Prealbumin 22.0 mg/dL (18.0-42.0) 07/05/18 17:23 Triglycerides 90.0 mg/dL (0.0-149.0) 07/05/18 17:23 Cholesterol 157 mg/dL (0-200) 07/05/18 17:23 LDL Cholesterol, Calc 93.0 mg/dL (0.0-131.0) 07/05/18 17:23 VLDL Cholesterol, Calc 18.00 mg/dL (5.00-40.00) 07/05/18 17:23 HDL Cholesterol 46.0 mg/dL (40.0-60.0) 07/05/18 17:23 Cholesterol/HDL Ratio 3.41 07/05/18 17:23 Vitamin A 37 ug/dL (38-106) L 07/05/18 17:23 Vitamin B1 44 ug/L (38-122) 07/05/18 17:23 Vitamin B12 1003.0 pg/mL (200.0-944.0) H 07/05/18 17:23 Vitamin D 25-Hydroxy 71.2 ng/mL (30.0-100.0) 07/05/18 17:23 Folate 6.2 ng/mL 07/05/18 17:23 TSH 1.740 uIU/mL (0.350-5.500) 07/05/18 17:23 PTH Intact 79.7 pg/mL (14.0-72.0) H 07/05/18 17:23 Copper 1104 ug/L (665-1480) 07/05/18 17:23 Selenium 108 mcg/L (63-160) 07/05/18 17:23 Zinc 55 ug/dL (60-130) L 07/05/18 17:23 Iron is low Vitamin A is low Zinc is low Objective - Vital Signs Vital signs: Vital Signs Temp 98.2 F 07/05/18 16:30 Pulse 60 07/05/18 16:30 Resp BP 121/74 07/05/18 16:30 Pulse Ox Intake & Output 07/04/18 07/05/18 07/05/18 18:59 06:59 18:59 Weight 131.678 kg - Labs CBC & Chem 7: 07/05/18 17:23 07/05/18 17:23
[2018-07-05 18:19] LABS: Partial Thromboplastin Time 24.1 sec (22.0-30.0); Prothrombin Time 10.1 sec (9.0-12.0)
[2018-07-05 18:21] LABS: HCT 46.1 % (39.0-53.0); HGB 14.9 gm/dL (13.0-17.5); MCHC 32.2 g/dL (31.0-37.0); MCV 83.7 fL (80.0-100.0); Mean Platelet Volume 6.9; Platelet Count 236 k/uL (150-450); RBC 5.51 m/uL (4.30-5.90); RDW 14.2 % (11.5-15.5); WBC 5.7 k/uL (3.8-10.6)
[2018-07-06 03:18] LABS: Parathyroid Hormone Intact 79.7 pg/mL (14.0-72.0)
[2018-07-06 03:29] LABS: Hemoglobin A1C 5.5 % (4.0-6.0)
[2018-07-06 04:20] LABS: Iron Saturation 16.83 (15.00-50.00)
[2018-07-06 04:29] LABS: Vitamin D 25 Hydroxy 71.2 ng/mL (30.0-100.0)
[2018-07-06 04:30] LABS: Folate, Serum 6.2 ng/mL
[2018-07-06 04:34] LABS: Albumin 4.2 g/dL (3.80-4.90); Albumin/Globulin Ratio 1.56 (1.20-2.10); Anion Gap 6.9 mmol/L (4.00-12.00); Calcium 9.1 mg/dL (8.7-10.3); Carbon Dioxide 29.1 mmol/L (21.6-31.8); Globulin 2.7 g/dL (2.1-3.7); Phosphorus 3.8 mg/dL (2.4-5.1); Potassium 4.1 mmol/L (3.5-5.5); Total Bilirubin 0.3 mg/dL (0.3-1.2); Total Protein 6.9 g/dL (6.2-8.2)
[2018-07-07 14:52] LABS: Zinc, Serum 55 ug/dL (60-130)
[2018-07-10 05:43] LABS: Vitamin A 37 ug/dL (38-106)
[2018-07-10 05:58] LABS: Vitamin B1 44 ug/L (38-122)
[2018-07-11 16:21] LABS: Selenium 108 mcg/L (63-160)
== END | disposition home or self-care (01) ==
LOC: BARWHC3 15:47
PROVIDERS: ATTEND Surgery Plastic and Reconstructive Surgery
DX: Z48.815 Encounter for surgical aftercare following surgery on the digestive system (principal); E66.01 Morbid (severe) obesity due to excess calories; M17.0 Bilateral primary osteoarthritis of knee; M16.0 Bilateral primary osteoarthritis of hip; M47.816 Spondylosis without myelopathy or radiculopathy, lumbar region; G47.33 Obstructive sleep apnea (adult) (pediatric); E55.9 Vitamin D deficiency, unspecified; I11.9 Hypertensive heart disease without heart failure; M79.3 Panniculitis, unspecified; E21.1 Secondary hyperparathyroidism, not elsewhere classified; E89.1 Postprocedural hypoinsulinemia; D50.9 Iron deficiency anemia, unspecified; K90.9 Intestinal malabsorption, unspecified; K76.9 Liver disease, unspecified; N19 Unspecified kidney failure; K50.90 Crohn's disease, unspecified, without complications; Z68.42 Body mass index [BMI] 45.0-49.9, adult; Z98.84 Bariatric surgery status
CPT/HCPCS: 36415; 80053; 80061; 82306; 82525; 82607; 82728; 82746; 83036; 83540; 83550; 83735; 83970; 84100; 84134; 84255; 84425; 84443; 84590; 84630; 85027; 85610; 85730; 97803; 99211

== ENCOUNTER → 2018-10-04 | Outpatient (CLI) | payer BC ==
[2018-10-04 17:07] VITALS: BMI 43.6
--- NOTE | 2018-10-04 17:10 | P.PN ---
Subjective Progress Note Date: 10/04/18 DATE OF SERVICE: 10/04/2018 CHIEF COMPLAINT: Morbid obesity HISTORY OF PRESENT ILLNESS: Neil Soliz is a 43-year-old male is status post sleeve gastrectomy 11/21/2017. He is 10 months out. He has lost almost 120 pounds. Highest weight of 397 pounds. Protein intake is 120 grams. He has no gastroesophageal reflux disease. He has no dysphagia. At height of 5 feet 7.25 inches, his ideal body weight is 158 pounds. His highest weight was 397 pounds. Today he is 280 pounds from 290 pounds, 4 months ago. He has lost 10 pounds in 4 months. His weight loss is 117 pounds, lifetime. Percent excess weight loss is 49 %. His body mass index is decreased from 61.8 to 43.6. He is 122 pounds overweight. PAST MEDICAL HISTORY: 1. Morbid obesity due to excess calories. 2. Body mass index of 61.8 3. Osteoarthritis of the knees. 4. Osteoarthritis of the hips. 5. Osteoarthritis of the lower back. 6. Obstructive sleep apnea. 7. Hypertensive heart disease. 8. H. pylori gastritis PAST SURGICAL HISTORY: 1. Arthroscopy. 2. Upper endoscopy 3. Sleeve gastrectomy HOME MEDICATIONS: 1. MVI ALLERGIES: Denies. SOCIAL HISTORY: No active tobacco use. FAMILY HISTORY: No family history of ulcerative colitis disease or Crohn's disease. Family history of morbid obesity. No lupus in the family. No reports of stomach or esophageal cancer. Family history of diabetes type 2. REVIEW OF ORGAN SYSTEMS: CONSTITUTIONAL: At height of 5 feet 7.25 inches, his ideal body weight is 158 pounds. Highest 391 pounds. His body mass index 61.8 HEENT: Denies any active troubles with vision or hearing. No troubles with swallowing. ENDOCRINE: No diabetes. No hypothyroidism. CARDIOVASCULAR: No reports of palpitations or heart attacks or chest pain. Has hypertension. History of tachycardia. RESPIRATORY: Has daytime somnolence. No asthma. Has obstructive sleep apnea. GI: Denies any bright red blood per rectum. No diarrhea or constipation. Has H pylori gastritis. MUSCULOSKELETAL: Has lower back pain and joint pain. Has osteoarthritis of the knees. History of bilateral lower extremity edema. NEURO: No headaches. No seizure disorders. PSYCH: No depression or suicidal ideation. RHEUMATOLOGIC: No lupus. No rheumatoid arthritis. HEMATOLOGIC: Denies any abnormal bleeding or bruising. No personal history of DVTs. SKIN: No rash. No skin cancer. PHYSICAL EXAM: VITAL SIGNS: Height 5 foot 7.25 inches, weight 280 pounds. BMI 43.6 Vital Signs Temp 98.3 F 10/04/18 16:47 Pulse 57 L 10/04/18 16:47 Resp BP 129/83 10/04/18 16:47 Pulse Ox GENERAL: Well-developed in no acute distress. HEENT: No scleral icterus. Extraocular movements grossly intact. Hears conversational speech. No nasal drainage. NECK: Supple without lymphadenopathy. CHEST: Nonlabored respirations with equal bilateral excursions. CARDIOVASCULAR: Regular rate and regular rhythm. Distal 2+ pulses. ABDOMEN: Obese, soft, nontender, nondistended. MUSCULOSKELETAL: No clubbing, cyanosis. NEURO: No focal or lateralizing signs. Cranial nerves 2 through 12 grossly within normal limits. PSYCH: Appropriate affect. Alert and oriented to person, place and time. SKIN: Good skin turgor. Well perfused. LABS: Previous labs reviewed consistent with Iron is low, Vitamin A is low, and Zinc is low ASSESSMENT: 1. Morbid obesity due to excess calories. 2. Body mass index of 61.8 to 43.6 3. Osteoarthritis of the knees, improved 4. Osteoarthritis of the hips, improved 5. Osteoarthritis of the lower back, improved 6. Obstructive sleep apnea, improved 7. Hypertensive heart disease, improved 8. Status post sleeve gastrectomy 9. Vitamin D deficiency, resolved 10. Panniculitis. 11. Iron deficiency anemia, new 12. Vitamin A deficiency, new 13. Zinc deficiency, new PLAN: 1. His personal goal weight is 215 pounds. He is 60 pounds from his goal. 2. Recommend exercise as currently is sedentary. 3. Overall, he has done well and is off all medications for blood pressure. 4. Recommend bariatric labs. 5. Recommend iron supplement 325 mg three times daily 6. Recommend Vitamin A 8000 units daily for Vitamin A deficiency 7. Zinc supplement of 50 mg daily advised
[2018-10-04 17:33] VITALS: BP 129/83; PULSE 57; TEMP 98.3
== END | disposition home or self-care (01) ==
LOC: BARWHC3 16:04
PROVIDERS: ATTEND Surgery Plastic and Reconstructive Surgery
DX: Z48.815 Encounter for surgical aftercare following surgery on the digestive system (principal); E66.01 Morbid (severe) obesity due to excess calories; M17.0 Bilateral primary osteoarthritis of knee; M16.0 Bilateral primary osteoarthritis of hip; M19.90 Unspecified osteoarthritis, unspecified site; G47.33 Obstructive sleep apnea (adult) (pediatric); I11.9 Hypertensive heart disease without heart failure; K29.70 Gastritis, unspecified, without bleeding; B96.81 Helicobacter pylori [H. pylori] as the cause of diseases classified elsewhere; D50.9 Iron deficiency anemia, unspecified; E50.9 Vitamin A deficiency, unspecified; E60 Dietary zinc deficiency; M79.3 Panniculitis, unspecified; Z68.44 Body mass index [BMI] 60.0-69.9, adult; Z98.84 Bariatric surgery status; Z79.899 Other long term (current) drug therapy
CPT/HCPCS: 97803; 99211

== ENCOUNTER → 2018-10-09 | Outpatient (CLI) | payer BC ==
[2018-10-09 12:46] LABS: HCT 48.2 % (39.0-53.0); HGB 15.6 gm/dL (13.0-17.5); MCH 27.1 pg (25.0-35.0); MCHC 32.3 g/dL (31.0-37.0); MCV 83.9 fL (80.0-100.0); Mean Platelet Volume 6.7; Platelet Count 211 k/uL (150-450); RBC 5.75 m/uL (4.30-5.90); RDW 13.9 % (11.5-15.5); WBC 4.7 k/uL (3.8-10.6)
[2018-10-09 12:53] LABS: INR 0.9 (<1.2); Partial Thromboplastin Time 24.6 sec (22.0-30.0); Prothrombin Time 10.2 sec (9.0-12.0)
[2018-10-09 19:31] LABS: Iron Saturation 29.76 (15.00-50.00)
[2018-10-09 19:39] LABS: Vitamin D 25 Hydroxy 60.8 ng/mL (30.0-100.0)
[2018-10-09 19:40] LABS: Folate, Serum 9.4 ng/mL
[2018-10-09 19:55] LABS: Albumin 4.1 g/dL (3.80-4.90); Albumin/Globulin Ratio 1.52 (1.60-3.17); Anion Gap 4.3 mmol/L (4.00-12.00); Calcium 8.9 mg/dL (8.7-10.3); Carbon Dioxide 29.7 mmol/L (21.6-31.8); Globulin 2.7 g/dL (1.6-3.3); LDL Cholesterol,Calculated 84.8 mg/dL (0.0-131.0); Magnesium 1.9 mg/dL (1.5-2.4); Total Bilirubin 0.6 mg/dL (0.3-1.2); Total Protein 6.8 g/dL (6.2-8.2); VLDL Calculation 15.2 mg/dL (5.00-40.00)
[2018-10-09 20:00] LABS: Parathyroid Hormone Intact 39.7 pg/mL (14.0-72.0)
[2018-10-09 22:14] LABS: Hemoglobin A1C 5.5 % (4.0-6.0)
[2018-10-10 14:07] LABS: Zinc, Serum 74 ug/dL (60-130)
[2018-10-11 07:36] LABS: Vitamin A 39 ug/dL (38-106)
== END | disposition home or self-care (01) ==
LOC: LABWHC1 11:40
PROVIDERS: ATTEND Surgery Plastic and Reconstructive Surgery
DX: E66.01 Morbid (severe) obesity due to excess calories (principal); E21.1 Secondary hyperparathyroidism, not elsewhere classified; E89.1 Postprocedural hypoinsulinemia; D50.9 Iron deficiency anemia, unspecified; K90.9 Intestinal malabsorption, unspecified; E55.9 Vitamin D deficiency, unspecified; K76.9 Liver disease, unspecified; N19 Unspecified kidney failure; K50.90 Crohn's disease, unspecified, without complications
CPT/HCPCS: 36415; 80053; 80061; 82306; 82525; 82607; 82728; 82746; 83036; 83540; 83550; 83735; 83970; 84100; 84134; 84255; 84425; 84443; 84590; 84630; 85027; 85610; 85730

== ENCOUNTER → 2019-07-25 | Outpatient (CLI) | payer BC ==
[2019-07-25 18:03] LABS: INR 0.9 (<1.2); Partial Thromboplastin Time 24.9 sec (22.0-30.0); Prothrombin Time 10.1 sec (9.0-12.0)
[2019-07-25 18:21] LABS: HCT 45.1 % (39.0-53.0); HGB 15.2 gm/dL (13.0-17.5); MCH 28.8 pg (25.0-35.0); MCHC 33.8 g/dL (31.0-37.0); MCV 85.1 fL (80.0-100.0); Mean Platelet Volume 6.2; Platelet Count 207 k/uL (150-450); RDW 13.1 % (11.5-15.5); WBC 6.3 k/uL (3.8-10.6)
[2019-07-25 23:39] LABS: % Iron Saturation 17.13 (15.00-50.00); African American GFR (CKD) 104.1 (60.0-200.0); Albumin 4.2 g/dL (3.80-4.90); Albumin/Globulin Ratio 1.56 (1.60-3.17); Anion Gap 7.1 mmol/L (4.00-12.00); Calcium 9.2 mg/dL (8.7-10.3); Carbon Dioxide 29.9 mmol/L (21.6-31.8); Chol/HDL Ratio 3.8; Globulin 2.7 g/dL (1.6-3.3); LDL Cholesterol,Calculated 103.2 mg/dL (0.0-131.0); Magnesium 1.9 mg/dL (1.5-2.4); Non-African American GFR(CKD) 89.9 (60.0-200.0); Phosphorus 3.5 mg/dL (2.4-5.1); Potassium 3.9 mmol/L (3.5-5.5); Total Bilirubin 0.3 mg/dL (0.3-1.2); Total Protein 6.9 g/dL (6.2-8.2); VLDL Calculation 22.8 mg/dL (5.00-40.00)
[2019-07-25 23:47] LABS: Ferritin 84.7 ng/mL (22.0-322.0)
[2019-07-25 23:49] LABS: Folate, Serum 9.4 ng/mL
[2019-07-26 01:26] LABS: Hemoglobin A1C 5.4 % (4.0-6.0)
[2019-07-27 14:13] LABS: Zinc, Serum 72 ug/dL (60-130)
== END | disposition home or self-care (01) ==
LOC: LABWHC1 17:11
PROVIDERS: ATTEND Surgery Plastic and Reconstructive Surgery
DX: E21.1 Secondary hyperparathyroidism, not elsewhere classified (principal); D50.9 Iron deficiency anemia, unspecified; E44.0 Moderate protein-calorie malnutrition; E55.9 Vitamin D deficiency, unspecified; K74.1 Hepatic sclerosis; N19 Unspecified kidney failure; K50.90 Crohn's disease, unspecified, without complications; Z79.890 Hormone replacement therapy
CPT/HCPCS: 36415; 80053; 80061; 82040; 82306; 82525; 82607; 82728; 82746; 83036; 83540; 83550; 83735; 83970; 84100; 84134; 84255; 84270; 84403; 84425; 84443; 84590; 84630; 85027; 85610; 85730

== ENCOUNTER → 2019-07-25 | Outpatient (CLI) | payer BC ==
--- NOTE | 2019-07-25 16:22 | P.PN ---
Subjective Progress Note Date: 07/25/19 DATE OF SERVICE: 07/25/2019 CHIEF COMPLAINT: Morbid obesity HISTORY OF PRESENT ILLNESS: Neil Soliz is a 43-year-old male is status post sleeve gastrectomy 11/21/2017. He is 1.5 years out. He lost 100 pounds and now gaining weight. He is eating too much calories reviewed. Protein intake is over 90 grams daily. At height of 5 feet 7.25 inches, his ideal body weight is 158 pounds. His highest weight was 397 pounds. Today he is 295 pounds from 280 pounds, 10 months ago. He has gained 15 pounds in 10 months. His weight loss is 102 pounds, lifetime. Percent excess weight loss is 43 %. His body mass index is decreased from 61.8 to 45.9. He is 137 pounds overweight. PHYSICAL EXAM: VITAL SIGNS: Height 5 foot 7.25 inches, weight 295 pounds. BMI 45.9 Vital Signs Temp 98.2 F 07/25/19 17:22 Pulse 61 07/25/19 17:22 Resp 16 07/25/19 17:22 BP 132/86 07/25/19 17:22 Pulse Ox GENERAL: Well-developed in no acute distress. HEENT: No scleral icterus. Extraocular movements grossly intact. Hears conversational speech. No nasal drainage. NECK: Supple without lymphadenopathy. CHEST: Nonlabored respirations with equal bilateral excursions. CARDIOVASCULAR: Regular rate and regular rhythm. Distal 2+ pulses. ABDOMEN: Obese, soft, nontender, nondistended. MUSCULOSKELETAL: No clubbing, cyanosis. NEURO: No focal or lateralizing signs. Cranial nerves 2 through 12 grossly within normal limits. PSYCH: Appropriate affect. Alert and oriented to person, place and time. SKIN: Good skin turgor. Well perfused. ASSESSMENT: 1. Morbid obesity due to excess calories. 2. Body mass index of 61.8 to 43.6 3. Osteoarthritis of the knees, improved 4. Osteoarthritis of the hips, improved 5. Osteoarthritis of the lower back, improved 6. Obstructive sleep apnea, improved 7. Hypertensive heart disease, improved 8. Status post sleeve gastrectomy 9. Vitamin D deficiency, resolved 10. Panniculitis. 11. Iron deficiency anemia, new 12. Vitamin A deficiency, new 13. Zinc deficiency, new 14. Dietary surveillance and counseling PLAN: 1. He lost 100 pounds and now gaining weight. 2. Recommend bariatric labs
[2019-07-25 17:26] VITALS: BP 132/86; PULSE 61; RESP 16; TEMP 98.2; BMI 45.9
== END | disposition home or self-care (01) ==
LOC: BARWHC3 15:51
PROVIDERS: ATTEND Surgery Plastic and Reconstructive Surgery
DX: Z09 Encounter for follow-up examination after completed treatment for conditions other than malignant neoplasm (principal); Z98.84 Bariatric surgery status; E66.01 Morbid (severe) obesity due to excess calories; Z68.42 Body mass index [BMI] 45.0-49.9, adult; M17.0 Bilateral primary osteoarthritis of knee; G47.33 Obstructive sleep apnea (adult) (pediatric); D50.9 Iron deficiency anemia, unspecified; M79.3 Panniculitis, unspecified
CPT/HCPCS: 97803; 99211

== ENCOUNTER 2019-07-31 10:06 | Emergency (ER) | payer BC ==
[2019-07-31 10:27] VITALS: RESP 18; TEMP 98.5
[2019-07-31] MEDS ORDERED: SODIUM CHLORIDE 0.9% 1,000 ML IV STA (10:43)
[2019-07-31] MEDS ORDERED: MECLIZINE 12.5 MG TAB PO STA (10:43)
--- NOTE | 2019-07-31 11:03 | CT ---
EXAMINATION TYPE: CT brain wo con DATE OF EXAM: 07/31/2019 COMPARISON: 11/26/2016 HISTORY: vertigo CT DLP: 1044.4 mGycm. Automated Exposure Control for Dose Reduction was Utilized. TECHNIQUE: CT scan of the head is performed without contrast. FINDINGS: There is no acute intracranial hemorrhage, mass effect, or midline shift identified. The ventricles and sulci are within normal limits in size. The globes are intact. There is 1 mm ectopia of the cerebellar tonsils bilaterally. Scant mucosal thickening in the ethmoid sinuses. Paranasal si nuses and mastoid air cells are well aerated. IMPRESSION: No acute intracranial hemorrhage, mass effect, or midline shift is seen. Scant mucosal t hickening in the ethmoid sinuses.
[2019-07-31 11:07] LABS: Basophils # (A) 0.1 k/uL (0-0.2); Basophils % (A) 1 %; Eosinophils # (A) 0.1 k/uL (0-0.7); Eosinophils % (A) 2 %; HCT 45.4 % (39.0-53.0); HGB 15.3 gm/dL (13.0-17.5); Lymphocytes # (A) 1.6 k/uL (1.0-4.8); Lymphocytes % (A) 28 %; MCH 28.3 pg (25.0-35.0); MCHC 33.7 g/dL (31.0-37.0); MCV 84.1 fL (80.0-100.0); Mean Platelet Volume 7.5; Monocytes # (A) 0.5 k/uL (0-1.0); Monocytes % (A) 9 %; Neutrophils # (A) 3.3 k/uL (1.3-7.7); Neutrophils % (A) 57 %; Platelet Count 228 k/uL (150-450); RBC 5.39 m/uL (4.30-5.90); RDW 12.9 % (11.5-15.5); WBC 5.9 k/uL (3.8-10.6)
[2019-07-31 11:22] LABS: ALT 24 U/L (21-72); AST 25 U/L (17-59); African American GFR (CKD) >90 (>60 ml/min/1.73 sqM); Albumin 3.9 g/dL (3.5-5.0); Alkaline Phosphatase 88 U/L (38-126); Anion Gap 8 mmol/L; Blood Urea Nitrogen 13 mg/dL (9-20); Calcium 9.3 mg/dL (8.4-10.2); Carbon Dioxide 25 mmol/L (22-30); Chloride 108 mmol/L (98-107); Glucose 85 mg/dL (74-99); Non-African American GFR(CKD) >90 (>60 ml/min/1.73 sqM); Potassium 4.1 mmol/L (3.5-5.1); Sodium 141 mmol/L (137-145); Total Bilirubin 0.6 mg/dL (0.2-1.3); Total Protein 7.4 g/dL (6.3-8.2)
--- NOTE | 2019-07-31 12:16 | ED ---
General Adult HPI - General Chief complaint: Dizziness Stated complaint: Dizziness Time Seen by Provider: 07/31/19 10:23 Source: EMS, RN notes reviewed, old records reviewed Mode of arrival: EMS Limitations: no limitations - History of Present Illness Initial comments: 44-year-old male patient presents to ED for chief complaint of sudden onset sensation as if the room was spinning about him to Eduard when he arrived at work approximately one hour ago. Denies any other complaints at this time. Reports that something similar happened approximately 2 years ago he was told was dehydration. Denies any other complaints at this time. Systemic: Pt denies fatigue, fever/chills, rash. Pt denies weakness, night sweats, weight loss. Neuro: Pt denies headache, visual disturbances, syncope or pre-syncope. HEENT: Pt denies ocular discharge or irritation, otalgia, rhinorrhea, pharyngitis or notable lymphadenopathy. Cardiopulmonary: Pt denies chest pain, SOB, heart palpitations, dyspnea on exertion. Abdominal/GI: Pt denies abdominal pain, n/v/d. : Pt denies dysuria, burning w/ urination, frequency/urgency. Denies new onset urinary or bowel incontinence. MSK: Pt denies myalgia, loss of strength or function in extremities. Neuro: Pt denies new onset weakness, paresthesias. - Related Data Home Medications Medication Instructions Recorded Confirmed Calcium Citrate 250 mg PO DAILY 03/01/18 07/31/19 Multivitamins, Thera [Multivitamin 1 tab PO DAILY 03/01/18 07/31/19 (formulary)] Ashwagandha Supplement 1 cap PO DAILY 07/31/19 07/31/19 Cyanocobalamin (Vitamin B-12) 1,000 mcg PO DAILY 07/31/19 07/31/19 [Vitamin B-12] Ferrous Sulfate [Feosol] 325 mg PO DAILY 07/31/19 07/31/19 Fish Oil/Dha/Epa [Fish Oil 1,200 1 cap PO DAILY 07/31/19 07/31/19 mg Fish Oil] Previous Rx's Medication Instructions Recorded Amoxicillin/Potassium Clav 1 each PO Q12HR #20 tab 07/31/19 [Augmentin 875-125 Tablet] Meclizine [Antivert] 25 mg PO Q6H PRN #20 tab 07/31/19 Allergies Allergy/AdvReac Type Severity Reaction Status Date / Time No Known Allergies Allergy Verified 07/31/19 11:12 Review of Systems ROS Statement: Those systems with pertinent positive or pertinent negative responses have been documented in the HPI. ROS Other: All systems not noted in ROS Statement are negative. 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 Owen) Past Anesthesia/Blood Transfusion Reactions: No Reported Reaction Past Psychological History: No Psychological Hx Reported Smoking Status: Never smoker Past Alcohol Use History: Occasional Past Drug Use History: None Reported - Past Family History Mother Family Medical History: No Reported History General Exam - General Exam Comments Initial Comments: Constitutional: NAD, AOX3, Pt has pleasant affect. HEENT: NC/AT, trachea midline, neck supple, no lymphadenopathy. Posterior p harynx non erythematous, without exudates. External ears appear normal, without discharge. TMs are pale salcedo bilaterally. Mucous membranes moist. Eyes PERRLA, EOM intact. There is no scleral icterus. No pallor noted. Cardiopulmonary: RRR, no murmurs, rubs or gallops, no JVD noted. Lungs CTAB in a nterior and posterior marrero. No peripheral edema. Abdominal exam: Abdomen soft and non-distended. Abdomen non-tender to palpation in all 4 quadrants. Bowel sounds active in LLQ. No hepatosplenomegaly. No ecchymosis Neuro: CN II-XII intact. No nuchal rigidity. No raccon eyes, no lin sign, no hemotympanum. No cervical spinal tenderness. MSK: No posterior calf tenderness bilaterally, homans sign negative bilaterally. Posterior tibialis and radial pulse +2 bilaterally. Sensation intact in upper and lower extremities. Full active ROM in upper and lower extremities, 5/5 stregnth. Limitations: no limitations Course Vital Signs 07/31/19 10:25 Temperature 98.5 F Pulse Rate 60 Respiratory 18 Rate Blood Pressure 136/87 O2 Sat by Pulse 98 Oximetry Medical Decision Making - Medical Decision Making 44-year-old male patient presents to ED for chief complaint of sudden onset sensation as if the room was spinning about him to Eduard when he arrived at work approximately one hour ago. Denies any other complaints at this time. Reports that something similar happened approximately 2 years ago he was told was dehyd ration. Denies any other complaints at this time. Vital signs stable, afebrile. Physical exam displayed intact neurologic exam. Lateral eye movement does reproduce the vertigo symptoms. Laboratory investigations are unimpressive. EKG nonischemic. Troponin negative. CT brain without contrast displayed no acute intracranial process. Scant mucosal thickening ethmoid sinuses. Patient does report some sinus congestion. Patient feeling much improved with Antivert. Patient discharged with Augmentin and Antivert prescriptions. Will follow up with primary care provider tomorrow. Return to ER condition worsens. Case discussed with Dr. Honeycutt. - Lab Data Result diagrams: 07/31/19 10:30 07/31/19 10:30 Lab Results 07/31/19 07/31/19 07/31/19 Range/Units 10:30 10:30 10:30 WBC 5.9 (3.8-10.6) k/uL RBC 5.39 (4.30-5.90) m/uL Hgb 15.3 (13.0-17.5) gm/dL Hct 45.4 (39.0-53.0) % MCV 84.1 (80.0-100.0) fL MCH 28.3 (25.0-35.0) pg MCHC 33.7 (31.0-37.0) g/dL RDW 12.9 (11.5-15.5) % Plt Count 228 (150-450) k/uL Neutrophils % 57 % Lymphocytes % 28 % Monocytes % 9 % Eosinophils % 2 % Basophils % 1 % Neutrophils # 3.3 (1.3-7.7) k/uL Lymphocytes # 1.6 (1.0-4.8) k/uL Monocytes # 0.5 (0-1.0) k/uL Eosinophils # 0.1 (0-0.7) k/uL Basophils # 0.1 (0-0.2) k/uL Sodium 141 (137-145) mmol/L Potassium 4.1 (3.5-5.1) mmol/L Chloride 108 H (98-107) mmol/L Carbon Dioxide 25 (22-30) mmol/L Anion Gap 8 mmol/L BUN 13 (9-20) mg/dL Creatinine 0.90 (0.66-1.25) mg/dL Est GFR (CKD-EPI)AfAm >90 (>60 ml/min/1.73 sqM) Est GFR (CKD-EPI)NonAf >90 (>60 ml/min/1.73 sqM) Glucose 85 (74-99) mg/dL Calcium 9.3 (8.4-10.2) mg/dL Total Bilirubin 0.6 (0.2-1.3) mg/dL AST 25 (17-59) U/L ALT 24 (21-72) U/L Alkaline Phosphatase 88 (38-126) U/L Troponin I <0.012 (0.000-0.034) ng/mL Total Protein 7.4 (6.3-8.2) g/dL Albumin 3.9 (3.5-5.0) g/dL - EKG Data -: EKG Interpreted by Me (and Dr. Honeycutt ) EKG Comments: Ventricular rate 59, WI interval 174, QRS, QT/QTc 402/397. Sinus bradycardia, otherwise normal EKG. Disposition Clinical Impression: Vertigo, Sinusitis Disposition: HOME SELF-CARE Condition: Stable Instructions (If sedation given, give patient instructions): Vertigo (ED), Sinusitis (ED) Additional Instructions: Take antibiotics as directed. Take Antivert only as needed for vertigo symptoms. Follow up with primary care provider tomorrow. Return to ER if con dition worsens. Prescriptions: Meclizine [Antivert] 25 mg PO Q6H PRN #20 tab PRN Reason: Dizziness Amoxicillin/Potassium Clav [Augmentin 875-125 Tablet] 1 each PO Q12HR #20 tab Is patient prescribed a controlled substance at d/c from ED?: No Referrals: Darrian Ansari III, MD [Primary Care Provider] - 1-2 days
[2019-07-31 12:30] VITALS: BP 140/92; PULSE 65
== END 2019-07-31 12:22 | disposition home or self-care (01) ==
LOC: EC 10:06
DX: J32.2 Chronic ethmoidal sinusitis (principal); R42 Dizziness and giddiness; Z79.899 Other long term (current) drug therapy
CPT/HCPCS: 36415; 70450; 80053; 84484; 85025; 93005; 96360; 99285

== ENCOUNTER 2020-10-15 09:13 | Emergency (ER) | payer BC ==
[2020-10-15 09:23] VITALS: RESP 18; TEMP 98.8
--- NOTE | 2020-10-15 09:41 | ED ---
General Adult HPI - General Chief complaint: Extremity Problem,Nontraumatic Stated complaint: L Leg Swelling Time Seen by Provider: 10/15/20 09:20 Source: patient Mode of arrival: ambulatory Limitations: no limitations - History of Present Illness Initial comments: Dictation was produced using [employer] dictation software. please excuse any grammatical, word or spelling errors. This patient was cared for during a federal and state declared state of emergency secondary to Covid 19 Chief Complaint: 45-year-old male past medical history of hypertension, sleep apnea and GERD presents with 6 days of left low extremity pain History of Present Illness: Is a 45-year-old male he has no history of DVT. Patient states that over the last 5-6 days his develop left lower extremity pain. States the pain started over his dorsal left foot and then during the subsequent days he states that the pain radiated up into his posterior left calf and up his left medial thigh. Patient has no history of DVT. No history of ongoing cancer. He hasn't had any recent travel. Patient has any chest pain or shortness of breath. No family history of coagulopathies. He does feels of the left lower extremity is more swollen than the right. The ROS documented in this emergency department record has been reviewed and confirmed by me. Those systems with pertinent positive or negative responses have been documented in the HPI. All other systems are other negative and/or noncontributory. PHYSICAL EXAM: General Impression: Alert and oriented x3, not in acute distress HEENT: Normocephalic atraumatic, extra-ocular movements intact, pupils equal and reactive to light bilaterally, mucous membranes moist. Cardiovascular: Heart regular rate and rhythm Chest: Able to complete full sentences, no retractions, no tachypnea Abdomen: abdomen soft, non-tender, non-distended, no organomegaly Musculoskeletal: Pulses present and equal in all extremities, no peripheral edema Motor: no focal deficits noted Neurological: CN II-XII grossly intact, no focal motor or sensory deficits noted Left lower extremity: There is positive Tenderness with calf squeeze, left calf area is slightly more enlarged than the right calf area, equal symmetrical DP pulses bilaterally Skin: Intact with no visualized rashes Psych: Normal affect and mood ED course: 45-year-old male presents with atraumatic left extremity pain. Clinical presentation suspicious for left lower extremity DVT vital signs upon arrival are within acceptable limits. Patient is not having symptoms of pulmonary embolus. He is not tachycardic and not hypoxic showing no signs of respiratory distress.Ultrasound is negative. No evidence of DVT. Clinical presentation consistent with lower extremity strain. Patient advised follow-up with PCP. - Related Data Home Medications Medication Instructions Recorded Confirmed Calcium Citrate 250 mg PO DAILY 03/01/18 07/31/19 Multivitamins, Thera [Multivitamin 1 tab PO DAILY 03/01/18 07/31/19 (formulary)] Ashwagandha Supplement 1 cap PO DAILY 07/31/19 07/31/19 Cyanocobalamin (Vitamin B-12) 1,000 mcg PO DAILY 07/31/19 07/31/19 [Vitamin B-12] Ferrous Sulfate [Feosol] 325 mg PO DAILY 07/31/19 07/31/19 Fish Oil/Dha/Epa [Fish Oil 1,200 1 cap PO DAILY 07/31/19 07/31/19 mg Fish Oil] Previous Rx's Medication Instructions Recorded Amoxicillin/Potassium Clav 1 each PO Q12HR #20 tab 07/31/19 [Augmentin 875-125 Tablet] Meclizine [Antivert] 25 mg PO Q6H PRN #20 tab 07/31/19 Allergies Allergy/AdvReac Type Severity Reaction Status Date / Time No Known Allergies Allergy Verified 10/15/20 09:23 Review of Systems ROS Statement: Those systems with pertinent positive or pertinent negative responses have been documented in the HPI. ROS Other: All systems not noted in ROS Statement are negative. 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 Owen) Past Anesthesia/Blood Transfusion Reactions: No Reported Reaction Past Psychological History: No Psychological Hx Reported Smoking Status: Never smoker Past Alcohol Use History: Occasional Past Drug Use History: None Reported - Past Family History Mother Family Medical History: No Reported History General Exam Limitations: no limitations Course Vital Signs 10/15/20 09:20 Temperature 98.8 F Pulse Rate 73 Respiratory 18 Rate Blood Pressure 187/84 O2 Sat by Pulse 98 Oximetry Disposition Clinical Impression: Leg pain, posterior Disposition: HOME SELF-CARE Condition: Good Instructions (If sedation given, give patient instructions): Leg Pain (ED) Is patient prescribed a controlled substance at d/c from ED?: No Referrals: Darrian Ansari III, MD [Primary Care Provider] - 1-2 days Time of Disposition: 10:56
--- NOTE | 2020-10-15 10:26 | US ---
EXAMINATION TYPE: US venous doppler duplex LE LT DATE OF EXAM: 10/15/2020 9:39 AM COMPARISON: 08/24/2016 CLINICAL HISTORY: 45-year-old male suspect DVT. Pt states pain left leg SIDE PERFORMED: Left TECHNIQUE: The lower extremity deep venous system is examined utilizing real time linear array sonog sarita with graded compression, doppler sonography and color-flow sonography. FINDINGS: VESSELS IMAGED: Common Femoral Vein Deep Femoral Vein Greater Saphenous Vein * Femoral Vein Popliteal Vein Small Saphenous Vein * Proximal Calf Veins (* superficial vessels) Left Leg: Negative for DVT Additional targeted scanning at the site of patient's pain above the knee shows no discrete abnormali ty. IMPRESSION: No evidence for DVT within the left lower extremity imaged from the groin to the upper calf.
[2020-10-15 11:21] VITALS: BP 154/89; PULSE 60
== END 2020-10-15 11:20 | disposition home or self-care (01) ==
LOC: EC 09:13
DX: M79.605 Pain in left leg (principal); G47.30 Sleep apnea, unspecified; Z79.899 Other long term (current) drug therapy; Z99.89 Dependence on other enabling machines and devices; Z98.84 Bariatric surgery status
CPT/HCPCS: 99283

== ENCOUNTER → 2022-06-30 | Outpatient (CLI) | payer BC ==
--- NOTE | 2022-06-30 11:18 | P.SLEEP ---
History of Present Illness DATE: 06/30/2022 CONSULTATION/NEW PATIENT EVALUATION HISTORY OF PRESENT ILLNESS/SLEEP-WAKE EVALUATION: 47year old gentleman had been evaluated in the sleep center for possible obstructive sleep apnea hypopnea syndrome.Patient has history of CVA obstructive sleep apnea hypopnea syndrome documented 4 years ago, was started on treatment with CPAP but then patient had bariatric surgery lost weight and stop treatment. Presently he increased his weight again. SLEEP SCHEDULE: Usually sleep schedule on weekdays from 9 PM to 5:40 AM, during days off from 1011 PM to 10 AM. FALLING ASLEEP: Patient has problems with falling asleep, has TV set and bedroom. DURING SLEEP: Patient has some very loud snoring and multiple awakenings from sleep around 5 times with 3 episodes of nocturia, positive history of stop breathing during the sleep, awakenings from sleep with dry mouth, gasping for air, sleep talking, sweating. No history of hypnogogical hallucinations, sleep paralysis, or cataplexy. DURING THE DAY/WAKE STATE: In the morning patient wake up tired, has difficulties to pay attention, falling asleep during the day, has problems with memory, concentration, irritability, depression and sexual dysfunction. Ceres sleepiness scale is increased to 10. Patient can take naps anytime, reported possibly vivid dreams during naps. PAST MEDICAL HISTORY: Increased blood pressure documented during previous visits to medical offices. PAST SURGICAL HISTOR A gastric sleeve in 2018, left knee surgery, benign tumor removed from left chowder at age of 12.[]. MEDICATION None[]. SOCIAL HISTOR Negative for ] smoking, alcohol consumption occasional. FAMILY HISTORYSleep apnea, hypertension, asthma, diabetes[]. REVIEW OF SYSTEMSLoud snoring, multiple awakenings from sleep, sleepiness during the day[]. No fevers. No double vision. No recent chest pain. No shortness of breath. No abdominal pain. No bleeding episodes. No blood in urine. No seizure episodes. PHYSICAL EXAMINATION: GENERAL: A pleasant patient without any distress. VITAL SIGNS: 179/105] , HR 76] , RR 16] , weigt 349 ] pounds, heig 5 foot 7- 1/2 inches, body mass ind 53.8] . HEENT: PERRLA, EOMI. Evaluation of oropharynx showed tongue protrudes midline, low position of soft palate Mallampati 3[]. NECK: Supple. No JVD. Thyroid is not palpabl 18 ] inches in circumference. LUNGS: Clear to percussion and to auscultation. Good air exchange. No wheezing or rhonchi. HEART: S1, S2 regular. No murmurs, gallops or rubs. ABDOMEN: Soft and nontender. Bowel sounds are present. No organomegaly appreciated, obese. EXTREMITIES: No clubbing or cyanosis. [employer]C: Awake, alert, and oriented x3. Cranial nerves 2 to 7 intact. There is no fasciculation or atrophy noted. No focal deficits observed. ASSESSMENT: 1. Loud snoring, witnessed episodes of stop breathing during the sleep, low position of soft palate Mallampati 3, wide neck 18 inches in circum ference, sleepiness Ceres Sleepiness Scale is 10, history of severe obstructive sleep apnea in the past. Obstructive sleep apnea hypopnea syndrome[]. 2. Morbid obesity body mass index 53.8[]. 3. hypertension in the office[]. 4. Status post bariatric surgery, gastric sleeve in 2018 . 5 Status post left knee surgery . 6.Status post benign tumor removed from left chowder at the age of 12 . PLAN: 1. Polysomnography for evaluation of patient's breathing during sleep. 2. CPAP/BiPAP titration if sleep study confirms obstructive sleep apnea- hypopnea syndrome. 3. Preferable position during sleep on the side. 4. No driving if patient feels any sleepiness. Patient is aware of civil and criminal liability for unsafe driving. 5. Sleep hygiene with regular sleep time for at least 7.5-8 hours. 6. Aggressive losing weight weight. 7. Monitoring blood pressure. 8, low sodium diet Thank you very much for referring this patient for consultation. Sincerely, Walker Nur MD, PhD, FAASM. Diplomat of [place] [employer], Sleep Medicine Board by [place] [employer] [place] [employer] [facility] Past Medical History Past Medical History: GERD/Reflux, Hypertension, Sleep Apnea/CPAP/BIPAP Additional Past Medical History / Comment(s): states does not have machine for sleep apnea, hx stomach ulcer History of Any Multi-Drug Resistant Organisms: None Reported Past Surgical History: Bariatric Surgery, Orthopedic Surgery Additional Past Surgical History / Comment(s): left arm benign tumor removed from bone, lt knee meniscus repair, sleeve gastrectomy 4-2-18 (Dr. Owen) Past Anesthesia/Blood Transfusion Reactions: No Reported Reaction Past Psychological History: No Psychological Hx Reported Smoking Status: Never smoker Past Alcohol Use History: Occasional Past Drug Use History: None Reported - Past Family History Mother Family Medical History: No Reported History Medications and Allergies Home Medications Medication Instructions Recorded Confirmed Type Calcium Citrate 250 mg PO DAILY 03/01/18 07/31/19 History Multivitamins, Thera [Multivitamin 1 tab PO DAILY 03/01/18 07/31/19 History (formulary)] Amoxicillin/Potassium Clav 1 each PO Q12HR #20 tab 07/31/19 Rx [Augmentin 875-125 Tablet] Ashwagandha Supplement 1 cap PO DAILY 07/31/19 07/31/19 History Cyanocobalamin (Vitamin B-12) 1,000 mcg PO DAILY 07/31/19 07/31/19 History [Vitamin B-12] Ferrous Sulfate [Feosol] 325 mg PO DAILY 07/31/19 07/31/19 History Fish Oil/Dha/Epa [Fish Oil 1,200 1 cap PO DAILY 07/31/19 07/31/19 History mg Fish Oil] Meclizine [Antivert] 25 mg PO Q6H PRN #20 tab 07/31/19 Rx Allergies Allergy/AdvReac Type Severity Reaction Status Date / Time No Known Allergies Allergy Verified 10/15/20 09:23 Sleep Note - Sleep Note Sleep Note: Temperature: Pulse Rate: Respiratory Rate: Blood Pressure: SpO2: Height: Weight: BMI: Neck Circumference:
== END ==
LOC: SLEEP 10:26
PROVIDERS: ATTEND Internal Medicine
DX: G47.33 Obstructive sleep apnea (adult) (pediatric) (principal); E66.01 Morbid (severe) obesity due to excess calories; Z68.43 Body mass index [BMI] 50.0-59.9, adult; I10 Essential (primary) hypertension; Z98.84 Bariatric surgery status; Z98.890 Other specified postprocedural states
CPT/HCPCS: 99211